=== PATIENT | female | born 2000 | race African-American/Black ===

== ENCOUNTER 2020-08-28 15:58 | Emergency (ER) | payer MEDICAID, SELFPAY ==
[2020-08-28 16:10] VITALS: BP 116/70; PULSE 78; RESP 18; TEMP 36.8; O2SAT 98; BMI 43.0
[2020-08-28] MEDS: Magnesium Hydrox/Alum Hydrox 30 ML ORAL.SUSP PO (17:35)
[2020-08-28] MEDS: Lidocaine HCl Viscous 2 % 15 ML SOLUTION 10 ML MUCOUS MEM (17:35)
[2020-08-28] MEDS: Dicyclomine HCl 10 MG CAPSULE 20 MG PO (17:35)
[2020-08-28 17:42] LABS: Basophils Percent Auto 0.3 % (0-2); Eosinophils Absolute Auto 0.1 X10*3/uL (0.0-0.4); Eosinophils Percent Auto 0.7 % (0-4); Hematocrit 42.4 % (37-47); Hemoglobin 14.1 g/dl (12.0-16.0); Imm Gran Abs Auto 0.04 X10*3/uL (0.00-0.03); Imm Gran Pct Auto 0.3 % (0.0-0.4); Lymphocytes Absolute Auto 5.1 X10*3/uL (1.2-4.9); Lymphocytes Percent Auto 33.5 % (20-40); MANUAL DIFF FLAG SCAN; Mean Corpuscular HGB Conc 33.3 g/dl (31.0-35.0); Mean Corpuscular Hemoglobin 30.4 pg (27.0-33.0); Mean Corpuscular Volume 91.4 fL (80-98); Mean Platelet Volume 10.9 fL (9.4-12.3); Monocytes Absolute Auto 0.8 X10*3/uL (0.1-1.2); Monocytes Percent Auto 5.1 % (2-11); Neutrophils Absolute Auto 9.2 X10*3/uL (2.0-8.3); Neutrophils Percent Auto 60.1 % (45-73); Platelet Count 334 X10*3/uL (160-400); Red Blood Count 4.64 X10*6/uL (4.20-5.50); Red Cell Distribution Width 12.1 % (11.0-16.0); SCAN SMEAR FLAG 1; White Blood Count 15.2 X10*3/uL (4.8-10.8)
[2020-08-28 17:51] LABS: Glucose Urine UA NEG (NEG); Leukocyte Esterase Urine NEG (NEG); Nitrite Urine NEG (NEG); Specific Gravity - Urine 1.015 (1.005-1.025); Urine Blood NEG (NEG); Urine Ketones NEG (NEG); Urine Protein NEG (NEG-TRACE)
[2020-08-28 17:55] LABS: Appearance Urine CLEAR; Color Urine YELLOW; UPreg QC Valid YES; Urine Pregnancy NEGATIVE (NEGATIVE)
[2020-08-28 18:05] LABS: SLIDE REVIEW VERIFIED
[2020-08-28 18:06] LABS: Alanine Aminotransferase 23 U/L (0-31); Alkaline Phosphatase 98 U/L (39-117); Anion Gap 10 (12-20); Aspartate Amino Transferase 18 U/L (5-31); Bilirubin Total 0.3 mg/dL (0.0-1.0); Blood Urea Nitrogen 6 mg/dL (9-16); Calcium 8.9 mg/dL (8.4-10.2); Carbon Dioxide 27 mmol/L (22-29); Chloride 105 mmol/L (96-108); Creatinine Clr Calc Pharmacy 162.1; Estimated Glomerular Filt Rate > 60; Glucose Random 79 mg/dL (60-115); Potassium 4.1 mmol/L (3.3-5.1); Sodium 138 mmol/L (135-145); Total Protein 7.6 g/dL (6.5-8.0)
[2020-08-28 18:22] LABS: Bacteria Urine TRACE /LPF; RBC Urine 0 /HPF (0); Squamous Epithelial Cell Urine 1+ /LPF; WBC Urine 0 /HPF (0-4)
[2020-08-28 19:40] VITALS: BP 105/66; PULSE 64; RESP 18; TEMP 36.7; O2SAT 98
--- NOTE | 2020-08-28 20:12 | ED.ABDPAIN ---
HPI - Abdominal Pain General Chief Complaint: Abdominal Pain Stated Complaint: flank pain Time Seen by Provider: 08/28/20 17:16 Source: patient Mode of arrival: ambulatory Limitations: no limitations History of Present Illness HPI narrative: 20-year-old female who denies significant past medical history who presents ambulatory via triage with complaint of states over the past couple months she has had on and off epigastric pain that is described as burning like and intermittent. In addition to this she also reports she has days where she is having some constipation and days where she has soft stools/diarrhea with some mild cramping. She otherwise denies any fever, chills, nausea or vomiting. No recent travel or sick contacts. Related Data Previous Rx's Medication Instructions Recorded dicyclomine 20 mg PO BID #20 tab 08/28/20 omeprazole magnesium [Prilosec OTC] 20 mg PO DAILY #14 tab 08/28/20 Allergies Allergy/AdvReac Type Severity Reaction Status Date / Time No Known Allergies Allergy Verified 08/28/20 17:16 Review of Systems Review of Systems Constitutional: No Weight loss, No Fever, No Chills, No Night Sweats, No Fatigue, No Malaise ENT/Mouth: No Hearing loss, No Ear Pain, No Nasal Congestion, No Sinus Pain, No Hoarseness, No sore throat, No Rhinorrhea, No Swallowing Difficulty Eyes: No Eye Pain, No Swelling, No Redness, No Foreign Body, No Discharge, No Vision Changes Cardiovascular: No Chest Pain, No SOB, No Dyspnea on Exertion, No Orthopnea, No Edema, No Palpitations Respiratory: No Cough, No Sputum, No Wheezing, No Smoke Exposure, No Dyspnea Gastrointestinal: No Nausea, No Vomiting, No Diarrhea, No Constipation, + abdominal Pain, No Hematochezia, No Melena Genitourinary: no irregular bleeding, No Dysuria, No Urinary Frequency, No Hematuria, No Urinary Incontinence, No Urgency, No Flank Pain, No Urinary Flow Changes, No Hesitancy Musculoskeletal: No joint pain, No Myalgias, No Joint Swelling Skin: No Skin Lesions, No rash Neuro: No Weakness, No Numbness, No Paresthesias, No Loss of Consciousness, No Dizziness, No Headache Psych: No Social Issues Heme/Lymph: No Bruising, No Bleeding,No Lymphadenopathy Endocrine: No Polyuria, No Polydipsia, No Temperature Intolerance Yes all other systems are reviewed and are negative Physical Exam Vital Signs: Vital Signs: Last Vital Signs Temp 98.1 F 08/28/20 19:40 Pulse 64 08/28/20 19:40 Resp 18 08/28/20 19:40 BP 105/66 08/28/20 19:40 Pulse Ox 98 08/28/20 19:40 Body Mass Index 43.0 Reviewed Const: General: cooperative and healthy appearing; No acute distress or intoxicated appearing Nutritional Appearance: average body habitus Orientation/consciousness: patient oriented x3 HENMT: Head: Yes normal to inspection Ears: hearing grossly normal bilaterally Eyes: General: appearance normal, both eyes and all related structures Visual Almanza: normal visual almanza by confrontation Neck: Neck: Yes normal visual inspection, No positive Brudzinski's sign, No positive Kernig's sign and No tender Thyroid: Thyroid normal Chest: Chest palpation & inspection: normal inspection of the chest Resp: Effort & Inspection: normal respiratory effort Auscultation: clear to auscultation bilaterally Cardio: Jugular venous distension: no JVD Rhythm: regular rhythm Heart sounds: S1 normal heart sound present and S2 normal heart sound present GI: Inspection: Yes normal to inspection Palpation (GI): Soft to palpation, nontender, no guarding and not rigid Percussion: Yes normal to percussion Auscultation: normal bowel sounds : General: Yes no CVA tenderness Back/Spine/Pelvis: Back: no CVA tenderness Skin: General skin exam: no rashes or lesions noted Neuro: General: patient oriented x3 Extrem: General: Yes normal to inspection Course Course Course Narrative: Labs with leukocytosis of 15 no previous to compare to question reactive, otherwise abdominal exam reassuring feels much better after GI cocktail her discomfort has resolved. She is overweight with BMI of 43. I suspect component of gastroesophageal reflux disease/IBS. Given the abdominal exam is reassuring and she overall looks well I do not feel that she needs any advanced imaging at this time. This was reviewed with the patient she is agreeable and comfortable. Hemodynamically stable. Will discharge home with GI as well as GP follow-up. Clear return precautions follow-up provided. MDM - Abdominal Pain Lab Data Result diagrams: 08/28/20 17:28 08/28/20 17:28 Labs: Lab Results 04/01/21 04/01/21 04/01/21 Range/Units 17:28 17:28 17:28 WBC 15.2 H (4.8-10.8) X10*3/uL RBC 4.64 (4.20-5.50) X10*6/uL Hgb 14.1 (12.0-16.0) g/dl Hct 42.4 (37-47) % MCV 91.4 (80-98) fL MCH 30.4 (27.0-33.0) pg MCHC 33.3 (31.0-35.0) g/dl RDW 12.1 (11.0-16.0) % Plt Count 334 (160-400) X10*3/uL MPV 10.9 (9.4-12.3) fL Immature Gran % (Auto) 0.3 (0.0-0.4) % Neut % (Auto) 60.1 (45-73) % Lymph % (Auto) 33.5 (20-40) % Mellette % (Auto) 5.1 (2-11) % Eos % (Auto) 0.7 (0-4) % Baso % (Auto) 0.3 (0-2) % Lymph # (Auto) 5.1 H (1.2-4.9) X10*3/uL Mellette # (Auto) 0.8 (0.1-1.2) X10*3/uL Eos # (Auto) 0.1 (0.0-0.4) X10*3/uL Baso # (Auto) 0.0 (0.0-0.2) X10*3/uL Abs Immat Gran (auto) 0.04 H (0.00-0.03) X10*3/uL Absolute Neuts (auto) 9.2 H (2.0-8.3) X10*3/uL Absolute Nucleated RBC 0.000 (0.0-0.012) X10*3/uL Nucleated RBC % (auto) 0.0 (0.0-0.2) /100WBC Smear Tech's Comments VERIFIED Sodium 138 (135-145) mmol/L Potassium 4.1 (3.3-5.1) mmol/L Chloride 105 (96-108) mmol/L Carbon Dioxide 27 (22-29) mmol/L Anion Gap 10 L (12-20) BUN 6 L (9-16) mg/dL Creatinine 0.66 (0.5-1.4) mg/dL Estim Creat Clear Calc 162.1 Estimated GFR > 60 Random Glucose 79 (60-115) mg/dL Calcium 8.9 (8.4-10.2) mg/dL Total Bilirubin 0.3 (0.0-1.0) mg/dL AST 18 (5-31) U/L ALT 23 (0-31) U/L Alkaline Phosphatase 98 (39-117) U/L Total Protein 7.6 (6.5-8.0) g/dL Albumin 4.0 (3.5-5.0) g/dL Urine Color YELLOW Urine Appearance CLEAR Urine pH 6.0 (5.0-8.0) Ur Specific Downs 1.015 (1.005-1.025) Urine Protein NEG (NEG-TRACE) MG/DL Urine Glucose (UA) NEG (NEG) MG/DL Urine Ketones NEG (NEG) MG/DL Urine Blood NEG (NEG) Urine Nitrite NEG (NEG) Ur Leukocyte Esterase NEG (NEG) Urine RBC 0 (0) /HPF Urine WBC 0 (0-4) /HPF Ur Squamous Epith Cells 1+ /LPF Urine Bacteria TRACE /LPF Urine Test (NEGATIVE) 08/28/20 Range/Units 17:28 WBC (4.8-10.8) X10*3/uL RBC (4.20-5.50) X10*6/uL Hgb (12.0-16.0) g/dl Hct (37-47) % MCV (80-98) fL MCH (27.0-33.0) pg MCHC (31.0-35.0) g/dl RDW (11.0-16.0) % Plt Count (160-400) X10*3/uL MPV (9.4-12.3) fL Immature Gran % (Auto) (0.0-0.4) % Neut % (Auto) (45-73) % Lymph % (Auto) (20-40) % Mellette % (Auto) (2-11) % Eos % (Auto) (0-4) % Baso % (Auto) (0-2) % Lymph # (Auto) (1.2-4.9) X10*3/uL Mellette # (Auto) (0.1-1.2) X10*3/uL Eos # (Auto) (0.0-0.4) X10*3/uL Baso # (Auto) (0.0-0.2) X10*3/uL Abs Immat Gran (auto) (0.00-0.03) X10*3/uL Absolute Neuts (auto) (2.0-8.3) X10*3/uL Absolute Nucleated RBC (0.0-0.012) X10*3/uL Nucleated RBC % (auto) (0.0-0.2) /100WBC Smear Tech's Comments Sodium (135-145) mmol/L Potassium (3.3-5.1) mmol/L Chloride (96-108) mmol/L Carbon Dioxide (22-29) mmol/L Anion Gap (12-20) BUN (9-16) mg/dL Creatinine (0.5-1.4) mg/dL Estim Creat Clear Calc Estimated GFR Random Glucose (60-115) mg/dL Calcium (8.4-10.2) mg/dL Total Bilirubin (0.0-1.0) mg/dL AST (5-31) U/L ALT (0-31) U/L Alkaline Phosphatase (39-117) U/L Total Protein (6.5-8.0) g/dL Albumin (3.5-5.0) g/dL Urine Color Urine Appearance Urine pH (5.0-8.0) Ur Specific Downs (1.005-1.025) Urine Protein (NEG-TRACE) MG/DL Urine Glucose (UA) (NEG) MG/DL Urine Ketones (NEG) MG/DL Urine Blood (NEG) Urine Nitrite (NEG) Ur Leukocyte Esterase (NEG) Urine RBC (0) /HPF Urine WBC (0-4) /HPF Ur Squamous Epith Cells /LPF Urine Bacteria /LPF Urine Test NEGATIVE (NEGATIVE) Discharge Plan Discharge Clinical Impression: Abdominal pain Patient Disposition: Home, Self-Care Instructions: Irritable Bowel Syndrome (ED), Diet for Stomach Ulcers and Gastritis (ED), Gastroesophageal Reflux Disease (ED) Additional Instructions: Eat a balanced diet Avoid carbonated drinks Avoid caffeine Avoid fast foods Avoid any greasy foods Eat small and frequent meals and diet this mostly consistent with Mediterranean diet Follow-up with the GI doctor as discussed Follow-up with primary care doctor Return if any concerns or worsening symptoms including abdominal pain, nausea, vomiting, diarrhea, pain, fever Thank you Prescriptions: New omeprazole magnesium [Prilosec OTC] 20 mg tablet,delayed release (DR/EC) 20 mg PO DAILY Qty: 14 RF: 0 dicyclomine 20 mg tablet 20 mg PO BID Qty: 20 RF: 0 Referrals: Adina Greenberg MD [Physician] - 2 weeks Chasity Spaulding MD [Physician] - 2 weeks [facility] Past Medical History Medical History Anxiety Depression Sinusitis Social History Social History Advance Directives: No Advance Directives Information Provided: No
== END 2020-08-28 20:43 | disposition home or self-care (01) ==
PROVIDERS: Nurse Practitioner Primary Care; Emergency Provider Emergency Medicine
DX: R10.9 Unspecified abdominal pain (principal)
CPT/HCPCS: 36415; 80053; 81001; 81025; 85025; 99283; 99284

== ENCOUNTER 2021-02-04 19:40 | Emergency (ER) | payer MEDICAID, SELFPAY ==
--- NOTE | ~2021-02-04 | US_ITS ---
EXAMINATION: US PELVIS CLINICAL INFORMATION: Abnormal bleeding. Pain. COMPARISON: None TECHNIQUE: Ultrasound of the pelvis is performed using both transabdominal and transvaginal transducers along with Doppler. Transvaginal imaging is performed due to inadequate visualization transabdominally. FINDINGS: Uterus: The uterus is anteverted and measures 7.0 x 2.7 x 3.2 cm. The double wall endometrial thickness is 6 mm. The uterus is smooth in contour and has normal myometrial echogenicity. No visible fibroid. Adnexa: Both ovaries are visualized. There is normal color flow to the adnexa. There is no ovarian torsion. There is no pelvic ascites or fluid collection. Right ovarian dominant follicle measuring 1.0 cm. Right ovary measures 3.1 x 1.8 x 1.1 cm. Volume of 3 mL. Left ovary measures 1.8 x 1.5 x 1.4 cm. Volume of 2 mL. US/US pelvic and transvaginal IMPRESSION: Unremarkable examination.
[2021-02-04 21:03] VITALS: BP 103/69; PULSE 87; RESP 18; TEMP 37.4; O2SAT 98; BMI 43.4
--- NOTE | 2021-02-04 22:11 | ED_ITS ---
HPI - Abdominal Pain General Chief Complaint: Abdominal Pain Stated Complaint: Abdominal pain/vomiting Source: patient Mode of arrival: ambulatory Limitations: no limitations History of Present Illness HPI narrative: 20-year-old female presents with severe abdominal pain and cramping. She states that she normally has significant pain, cramping, and abnormal bleeding with all her periods, but today she cannot control the nausea and vomiting. Patient is not sexually active with men, does have significant family history of uterine and cervical cancer. MD elicited complaint: abdominal pain Onset (ago): day(s) Pain Consistency: constant Location: suprapubic Severity: severe Pain scale (0-10): 10 Quality: cramping Radiation: suprapubic Migration to: no migration Exacerbating factors: vomiting and movement Relieving factors: nothing Associated symptoms: nausea and vomiting Treatments prior to arrival: NSAIDs Related Data Date of Last Menstrual Period: 02/04/21 Patient : No Previous Rx's Medication Instructions Recorded dicyclomine 20 mg tablet 20 mg PO BID #20 tab 08/28/20 omeprazole magnesium 20 mg 20 mg PO DAILY #14 tab 08/28/20 tablet,delayed release (Prilosec OTC) ibuprofen 600 mg tablet 600 mg PO Q6H PRN #90 tab 02/05/21 metoclopramide HCl 10 mg tablet 10 mg PO Q8H PRN #14 tab 02/05/21 (Reglan) Allergies Allergy/AdvReac Type Severity Reaction Status Date / Time No Known Allergies Allergy Verified 02/04/21 21:03 Review of Systems Review of Systems Constitutional: No Fever, No Chills ENT/Mouth: No sore throat, No Rhinorrhea Eyes: No Eye Pain, No Redness Cardiovascular: No Chest Pain, No SOB Respiratory: No Cough, No Sputum, No Wheezing Gastrointestinal: positive Nausea, positive Vomiting, No Diarrhea, positive abdominal pain Genitourinary: positive irregular bleeding, No Dysuria, No Urinary Frequency, positive pelvic pain Musculoskeletal: No Myalgias Skin: No rash Neuro: No Weakness, No Headache Psych: No Anxiety/Panic, No Depression Heme/Lymph: No bruising, No Lymphadenopathy Endocrine: No Polyuria, No Polydipsia Yes all other systems are reviewed and are negative Physical Exam Vital Signs: Vital Signs: Last Vital Signs Temp 99.4 F 02/04/21 21:03 Pulse 54 09/09/21 00:26 Resp 16 02/05/21 00:26 BP 120/81 02/05/21 00:26 Pulse Ox 98 02/04/21 21:03 Body Mass Index 43.4 Appearance: Alert. Oriented X3. Moderate distress. Eyes: Pupils equal, round and reactive to light. ENT: Pharynx normal. Moist mucous membranes. Neck: Normal inspection. Neck supple. CVS: Normal heart rate and rhythm. Pulses normal. Respiratory: No respiratory distress. Breath sounds normal. Abdomen: Soft and suprapubic tenderness. Skin: Skin warm and dry. Normal skin color. Normal skin turgor. Extremities: No lower extremity edema. Neuro: No motor deficit. No sensory deficit. Cranial nerves 2-12 intact. Course Course Course Narrative: 20-year-old female presents with abdominal cramping associated with menstruation, nausea, vomiting, and abnormal vaginal bleeding. She is concerned because she does have significant family history of uterine and cervical cancer and has not had recent gynecological exam. Will order labs, fluid resuscitation, antiemetics, and pelvic ultrasound. Labs, ultrasound are negative for acute findings requiring emergent intervention. With patient's significant family history, it is advised that she follow-up with Dr. Hernandez. Will prescribe Reglan, Benadryl, and ibuprofen. Patient verbalized understanding of and agrees plan of care discharge home. MDM - Abdominal Pain Differential Diagnosis Differential diagnosis: Likely ovarian cyst Differential diagnosis narrative:: Uterine fibroid Medical Records Attestation: I reviewed the patient's medical records. Lab Data Attestation: I reviewed the patient's lab results. Result diagrams: 02/04/21 22:10 02/04/21 22:09 Labs: Lab Results 02/04/21 02/04/21 02/04/21 Range/Units 22:09 22:10 22:25 WBC 17.4 H (4.8-10.8) X10*3/uL RBC 4.82 (4.20-5.50) X10*6/uL Hgb 14.6 (12.0-16.0) g/dl Hct 42.4 (37-47) % MCV 88.0 (80-98) fL MCH 30.3 (27.0-33.0) pg MCHC 34.4 (31.0-35.0) g/dl RDW 12.2 (11.0-16.0) % Plt Count 395 (160-400) X10*3/uL MPV 11.2 (9.4-12.3) fL Immature Gran % (Auto) 0.4 (0.0-0.4) % Neut % (Auto) 85.7 H (45-73) % Lymph % (Auto) 11.1 L (20-40) % Marshall % (Auto) 2.6 (2-11) % Eos % (Auto) 0.0 (0-4) % Baso % (Auto) 0.2 (0-2) % Lymph # (Auto) 1.9 (1.2-4.9) X10*3/uL Marshall # (Auto) 0.5 (0.1-1.2) X10*3/uL Eos # (Auto) 0.0 (0.0-0.4) X10*3/uL Baso # (Auto) 0.0 (0.0-0.2) X10*3/uL Abs Immat Gran (auto) 0.07 H (0.00-0.03) X10*3/uL Absolute Neuts (auto) 14.9 H (2.0-8.3) X10*3/uL Absolute Nucleated RBC 0.000 (0.0-0.012) X10*3/uL Nucleated RBC % (auto) 0.0 (0.0-0.2) /100WBC Sodium 138 (135-145) mmol/L Potassium 3.9 (3.3-5.1) mmol/L Chloride 106 (96-108) mmol/L Carbon Dioxide 21 L (22-29) mmol/L Anion Gap 15 (12-20) BUN 6 L (9-16) mg/dL Creatinine 0.74 (0.5-1.4) mg/dL Estim Creat Clear Calc 145.3 Estimated GFR > 60 Random Glucose 140 H D (60-115) mg/dL Calcium 10.1 D (8.4-10.2) mg/dL Total Bilirubin 0.6 (0.0-1.0) mg/dL AST 16 (5-31) U/L ALT 17 (0-31) U/L Alkaline Phosphatase 94 (39-117) U/L Total Protein 8.2 H (6.5-8.0) g/dL Albumin 4.4 (3.5-5.0) g/dL COVID-19 ([facility]) Negative (Negative) COVID-19 Clin Com See Note Imaging Data Pelvic ultrasound: Attestation: I personally reviewed and interpreted this imaging study as follows: Radiologist's impression: EXAMINATION:? US PELVIS CLINICAL INFORMATION:? Abnormal bleeding. Pain. COMPARISON: None TECHNIQUE: Ultrasound of the pelvis is performed using both transabdominal and transvaginal transducers along with Doppler. Transvaginal imaging is performed due to inadequate visualization transabdominally. FINDINGS: Uterus: The uterus is anteverted and measures 7.0 x 2.7 x 3.2 cm. The double wall endometrial thickness is 6 mm.? The uterus is smooth in contour and has normal myometrial echogenicity. No visible fibroid. Adnexa: Both ovaries are visualized. There is normal color flow to the adnexa. There is no ovarian torsion. There is no pelvic ascites or fluid collection. Right ovarian dominant follicle measuring 1.0 cm. Right ovary measures 3.1 x 1.8 x 1.1 cm. Volume of 3 mL. Left ovary measures 1.8 x 1.5 x 1.4 cm. Volume of 2 mL. US/US pelvic and transvaginal IMPRESSION: Unremarkable examination. Discharge Plan Discharge Clinical Impression: Dysfunctional uterine bleeding Patient Disposition: Home, Self-Care Instructions: Dysfunctional Uterine Bleeding (ED) Additional Instructions: You were evaluated for dysfunctional uterine bleeding. Your lab values are within normal limits. Your pelvic ultrasound is normal. However, with your family history you must follow-up with gynecology. I have referred you to Dr. Hernandez. Please use Reglan and Benadryl as needed for nausea and vomiting. Use ibuprofen as directed for menstrual cramps. Thank you for choosing this emergency department for evaluation. Please follow-up with primary care physician as needed. Return to the emergency department for any new, concerning, or worsening symptoms. Prescriptions: New ibuprofen 600 mg tablet 600 mg PO Q6H PRN (Reason: pain) Qty: 90 RF: 0 metoclopramide HCl [Reglan] 10 mg tablet 10 mg PO Q8H PRN (Reason: nausea and vomiting) Qty: 14 RF: 0 No Action omeprazole magnesium [Prilosec OTC] 20 mg tablet,delayed release (DR/EC) 20 mg PO DAILY Qty: 14 RF: 0 dicyclomine 20 mg tablet 20 mg PO BID Qty: 20 RF: 0 Referrals: Karri Hernandez MD [Physician] - 2 days (Dysfunctional uterine bleeding) [facility] Past Medical History Attestation statement: The following information was validated with the patient. Source: old records reviewed Medical History Anxiety Depression Sinusitis Date of Last Menstrual Period: 02/04/21 Social History Social History Advance Directives: No Advance Directives Information Provided: Yes Patient : No
[2021-02-04] MEDS: 0.9 % Sodium Chloride 1,000 ML 999 ML IV (22:17)
[2021-02-04 22:21] LABS: Basophils Percent Auto 0.2 % (0-2); Hematocrit 42.4 % (37-47); Hemoglobin 14.6 g/dl (12.0-16.0); Imm Gran Abs Auto 0.07 X10*3/uL (0.00-0.03); Imm Gran Pct Auto 0.4 % (0.0-0.4); Lymphocytes Absolute Auto 1.9 X10*3/uL (1.2-4.9); Lymphocytes Percent Auto 11.1 % (20-40); MANUAL DIFF FLAG NO; Mean Corpuscular HGB Conc 34.4 g/dl (31.0-35.0); Mean Corpuscular Hemoglobin 30.3 pg (27.0-33.0); Mean Platelet Volume 11.2 fL (9.4-12.3); Monocytes Absolute Auto 0.5 X10*3/uL (0.1-1.2); Monocytes Percent Auto 2.6 % (2-11); Neutrophils Absolute Auto 14.9 X10*3/uL (2.0-8.3); Neutrophils Percent Auto 85.7 % (45-73); Platelet Count 395 X10*3/uL (160-400); Red Blood Count 4.82 X10*6/uL (4.20-5.50); Red Cell Distribution Width 12.2 % (11.0-16.0); White Blood Count 17.4 X10*3/uL (4.8-10.8)
[2021-02-04] MEDS: ondansetron HCL 4 MG/2 ML VIAL IVPUSH (22:22)
--- NOTE | 2021-02-04 22:28 | PC.NURSE ---
pt taken to ultra sound
[2021-02-04 22:37] LABS: Alanine Aminotransferase 17 U/L (0-31); Albumin Level 4.4 g/dL (3.5-5.0); Alkaline Phosphatase 94 U/L (39-117); Anion Gap 15 (12-20); Aspartate Amino Transferase 16 U/L (5-31); Bilirubin Total 0.6 mg/dL (0.0-1.0); Blood Urea Nitrogen 6 mg/dL (9-16); Calcium 10.1 mg/dL (8.4-10.2); Carbon Dioxide 21 mmol/L (22-29); Chloride 106 mmol/L (96-108); Creatinine Clr Calc Pharmacy 145.3; Estimated Glomerular Filt Rate > 60; Glucose Random 140 mg/dL (60-115); Potassium 3.9 mmol/L (3.3-5.1); Sodium 138 mmol/L (135-145); Total Protein 8.2 g/dL (6.5-8.0)
[2021-02-04 22:44] LABS: COVID-19 Test Negative (Negative)
[2021-02-04] MEDS: Ketorolac Tromethamine 15 MG/ML VIAL 30 MG IVPUSH (23:06)
--- NOTE | 2021-02-04 23:08 | PC.NURSE ---
pt returned from ultra sound. medicated to abd pain.
[2021-02-05 00:26] VITALS: BP 120/81; PULSE 54; RESP 16
[2021-02-05] MEDS: diphenhydrAMINE HCL 50 MG/ML VIAL 25 MG IVPUSH (00:26)
[2021-02-05] MEDS: Metoclopramide HCl 10 MG/2 ML VIAL IVPUSH (00:26)
[2021-02-05 01:04] VITALS: PULSE 55; RESP 16; O2SAT 99
== END 2021-02-05 01:22 | disposition home or self-care (01) ==
PROVIDERS: Nurse Practitioner Family; Emergency Provider Internal Medicine
DX: N93.8 Other specified abnormal uterine and vaginal bleeding (principal); R10.9 Unspecified abdominal pain; R11.2 Nausea with vomiting, unspecified; Z20.822 Contact with and (suspected) exposure to COVID-19; Z79.899 Other long term (current) drug therapy
CPT/HCPCS: 36415; 76830; 76856; 80053; 85025; 87635; 96361; 96374; 96375; 99284; J1200; J1885; J2405; J2765

== ENCOUNTER 2021-02-06 09:24 | Observation (INO) | payer MEDICAID, SELFPAY ==
[2021-02-06] VITALS (8 sets, daily range): BP systolic 107–133; BP diastolic 47–89; PULSE 57–77; RESP 12–18; TEMP 36.5–37.2; O2SAT 97–100; BMI 43.4
--- NOTE | ~2021-02-06 | US_ITS ---
EXAMINATION: US ABDOMEN LIMITED CLINICAL INFORMATION: Epigastric/right upper quadrant pain. COMPARISON: None TECHNIQUE: Real-time imaging of the right upper quadrant abdominal viscera. Exam is limited due to body habitus. FINDINGS: PANCREAS: The head and body the pancreas are normal. The tail is not well visualized. LIVER: The liver is a suboptimally visualized. Liver echotexture is increased probably representing fatty infiltration. No focal liver lesion or biliary duct dilatation. GALLBLADDER: Normal. The gallbladder is physiologically distended without evidence of stones, sludge, polyps, wall thickening or pericholecystic fluid. COMMON BILE DUCT: Normal in caliber measuring 0.3 cm in diameter. RIGHT KIDNEY: Normal. No hydronephrosis. No renal calculi or focal parenchymal lesions. The kidney measures 10.3 cm in maximum dimension. FREE FLUID: None. US/US abdomen limited IMPRESSION: Limited exam. Normal-appearing gallbladder. No gallstones. Echogenic liver probably representing fatty infiltration.
--- NOTE | 2021-02-06 10:33 | ED.NAVMDI ---
HPI - Nausea/Vomiting/Diarrhea General Chief complaint: Nausea/Vomiting/Diarrhea Stated complaint: VOMITNG ABD PAIN Time Seen by Provider: 02/06/21 10:28 Source: patient and old records reviewed Mode of arrival: ambulatory Limitations: no limitations History of Present Illness MD elicited complaint: nausea, vomiting and abdominal pain Pertinent past history: other (occurs around menses does smoke THC) Onset (ago): day(s) (2) Description of vomiting: food contents Associated nausea: Yes Associated abdominal pain: Yes Location of pain: epigastric Radiation: diffuse Pain consistency: constant Severity: severe Quality: stabbing Exacerbating factors: eating Relieving factors: none Context: marijuana use Associated symptoms: loss of appetite, malaise and nausea/vomiting Treatment prior to arrival: other Related Data Previous Rx's Medication Instructions Recorded dicyclomine 20 mg tablet 20 mg PO BID #20 tab 08/28/20 omeprazole magnesium 20 mg 20 mg PO DAILY #14 tab 08/28/20 tablet,delayed release (Prilosec OTC) ibuprofen 600 mg tablet 600 mg PO Q6H PRN #90 tab 02/05/21 metoclopramide HCl 10 mg tablet 10 mg PO Q8H PRN #14 tab 02/05/21 (Reglan) Allergies Allergy/AdvReac Type Severity Reaction Status Date / Time No Known Allergies Allergy Verified 02/06/21 10:27 Review of Systems Review of Systems: Constitutional : No Weight loss, No Fever, No Chills ENT/Mouth : No sore throat, No Rhinorrhea Eyes: No Swelling, No Redness Cardiovascular : No Chest Pain, No SOB, NoEdema Respiratory : No Cough, No Sputum, No Wheezing Gastrointestinal : Positive Nausea, Positive Vomiting, no Diarrhea, positive abdominal Pain, No Hematochezia, No Melena Genitourinary : No Dysuria, No Urinary Frequency, No Hematuria, No Urgency Musculoskeletal : No joint pain, No Myalgias, No Joint Swelling Skin : No Skin Lesions, No rash Neuro : No Weakness, No Numbness, No Dizziness, No Headache Psych : No Anxiety/Panic, No Depression Heme/Lymph: No Bruising, No Lymphadenopathy Endocrine : No Polyuria, No Polydipsia All other systems reviewed and are negative. Gastrointestinal: Gastrointestinal: Reports nausea PMFSH Past Medical History Attestation statement: The following information was validated with the patient. Medical History Anxiety Depression Sinusitis Social History Social History (Updated 02/06/21 @ 10:44 by Dorcas Lucas DO) Alcohol intake: never Patient Tobacco Use Status: Never used Tobacco Use of substances other than those prescribed or required for medical reasons: No Substance Use Type: Marijuana Advance Directives: Yes Advance Directives Information Provided: Yes Advance Directives on File: No Patient : No Physical Exam Vital Signs: Vital Signs: Last Vital Signs Temp 98.5 F 02/06/21 16:16 Pulse 72 02/06/21 16:16 Resp 13 02/06/21 16:16 BP 115/47 L 02/06/21 16:16 Pulse Ox 99 02/06/21 16:16 Body Mass Index 43.4 Appearance: Alert. Oriented X3. active vomiting, anxious mild acute distress. Eyes: Pupils equal, round and reactive to light. ENT: Pharynx normal. Neck: Normal inspection. Neck supple. CVS: Normal heart rate and rhythm. Pulses normal. Respiratory: No respiratory distress. Breath sounds normal. Abdomen: Soft and moderate epigastric ttp no rebound mild vol guarding Skin: Skin warm and dry. Normal skin color. Normal skin turgor. Extremities: No lower extremity edema. No calf ttp Neuro: Oriented X 3. No motor deficit. No sensory deficit. 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 Lab Data Result diagrams: 02/06/21 11:39 02/06/21 11:39 Labs: Lab Results 02/06/21 02/06/21 02/06/21 Range/Units 11:39 11:39 11:39 WBC 13.6 H (4.8-10.8) X10*3/uL RBC 4.62 (4.20-5.50) X10*6/uL Hgb 14.0 (12.0-16.0) g/dl Hct 40.3 (37-47) % MCV 87.2 (80-98) fL MCH 30.3 (27.0-33.0) pg MCHC 34.7 (31.0-35.0) g/dl RDW 12.3 (11.0-16.0) % Plt Count 349 (160-400) X10*3/uL MPV 11.1 (9.4-12.3) fL Immature Gran % (Auto) 0.4 (0.0-0.4) % Neut % (Auto) 77.7 H (45-73) % Lymph % (Auto) 17.3 L (20-40) % [place] % (Auto) 4.1 (2-11) % Eos % (Auto) 0.1 (0-4) % Baso % (Auto) 0.4 (0-2) % Lymph # (Auto) 2.4 (1.2-4.9) X10*3/uL [place] # (Auto) 0.6 (0.1-1.2) X10*3/uL Eos # (Auto) 0.0 (0.0-0.4) X10*3/uL Baso # (Auto) 0.1 (0.0-0.2) X10*3/uL Abs Immat Gran (auto) 0.05 H (0.00-0.03) X10*3/uL Absolute Neuts (auto) 10.5 H (2.0-8.3) X10*3/uL Absolute Nucleated RBC 0.000 (0.0-0.012) X10*3/uL Nucleated RBC % (auto) 0.0 (0.0-0.2) /100WBC Sodium 139 (135-145) mmol/L Potassium 3.2 L (3.3-5.1) mmol/L Chloride 108 (96-108) mmol/L Carbon Dioxide 20 L (22-29) mmol/L Anion Gap 14 (12-20) BUN 6 L (9-16) mg/dL Creatinine 0.72 (0.5-1.4) mg/dL Estim Creat Clear Calc 149.3 Estimated GFR > 60 Random Glucose 113 (60-115) mg/dL Calcium 9.6 (8.4-10.2) mg/dL Magnesium 1.7 (1.6-2.6) mg/dL Total Bilirubin 0.5 (0.0-1.0) mg/dL Direct Bilirubin 0.2 (0.0-0.5) mg/dL AST 17 (5-31) U/L ALT 16 (0-31) U/L Alkaline Phosphatase 81 (39-117) U/L Total Protein 7.2 (6.5-8.0) g/dL Albumin 4.0 (3.5-5.0) g/dL Lipase 27 (8-78) U/L Urine Color Urine Appearance Urine pH (5.0-8.0) Ur Specific [place] (1.005-1.025) Urine Protein (NEG-TRACE) MG/DL Urine Glucose (UA) (NEG) MG/DL Urine Ketones (NEG) MG/DL Urine Blood (NEG) Urine Nitrite (NEG) Ur Leukocyte Esterase (NEG) Urine RBC (0) /HPF Urine WBC (0-4) /HPF Ur Squamous Epith Cells /LPF Amorphous Sediment /LPF Urine Bacteria /LPF Urine Mucus /LPF Urine Test (NEGATIVE) Urine Opiates Screen (Not Detect) Urine Fentanyl Screen (Not Detect) Ur Barbiturates Screen (Not Detect) Ur Phencyclidine Scrn (Not Detect) Ur Amphetamines Screen (Not Detect) U Benzodiazepines Scrn (Not Detect) Urine Cocaine Screen (Not Detect) U Marijuana (THC) Screen (Not Detect) Ethyl Alcohol mg/dL COVID-19 ([facility]) (Negative) COVID-19 Clin Com 02/06/21 02/06/21 02/06/21 Range/Units 13:42 13:42 13:42 WBC (4.8-10.8) X10*3/uL RBC (4.20-5.50) X10*6/uL Hgb (12.0-16.0) g/dl Hct (37-47) % MCV (80-98) fL MCH (27.0-33.0) pg MCHC (31.0-35.0) g/dl RDW (11.0-16.0) % Plt Count (160-400) X10*3/uL MPV (9.4-12.3) fL Immature Gran % (Auto) (0.0-0.4) % Neut % (Auto) (45-73) % Lymph % (Auto) (20-40) % [place] % (Auto) (2-11) % Eos % (Auto) (0-4) % Baso % (Auto) (0-2) % Lymph # (Auto) (1.2-4.9) X10*3/uL [place] # (Auto) (0.1-1.2) X10*3/uL Eos # (Auto) (0.0-0.4) X10*3/uL Baso # (Auto) (0.0-0.2) X10*3/uL Abs Immat Gran (auto) (0.00-0.03) X10*3/uL Absolute Neuts (auto) (2.0-8.3) X10*3/uL Absolute Nucleated RBC (0.0-0.012) X10*3/uL Nucleated RBC % (auto) (0.0-0.2) /100WBC Sodium (135-145) mmol/L Potassium (3.3-5.1) mmol/L Chloride (96-108) mmol/L Carbon Dioxide (22-29) mmol/L Anion Gap (12-20) BUN (9-16) mg/dL Creatinine (0.5-1.4) mg/dL Estim Creat Clear Calc Estimated GFR Random Glucose (60-115) mg/dL Calcium (8.4-10.2) mg/dL Magnesium (1.6-2.6) mg/dL Total Bilirubin (0.0-1.0) mg/dL Direct Bilirubin (0.0-0.5) mg/dL AST (5-31) U/L ALT (0-31) U/L Alkaline Phosphatase (39-117) U/L Total Protein (6.5-8.0) g/dL Albumin (3.5-5.0) g/dL Lipase (8-78) U/L Urine Color YELLOW Urine Appearance HAZY Urine pH 6.0 (5.0-8.0) Ur Specific [place] >= 1.030 H (1.005-1.025) Urine Protein 1+ H (NEG-TRACE) MG/DL Urine Glucose (UA) NEG (NEG) MG/DL Urine Ketones >=80 (NEG) MG/DL Urine Blood 3+ H (NEG) Urine Nitrite NEG (NEG) Ur Leukocyte Esterase TRACE H (NEG) Urine RBC 1-4 (0) /HPF Urine WBC 1-4 (0-4) /HPF Ur Squamous Epith Cells 4+ /LPF Amorphous Sediment 2+ /LPF Urine Bacteria 2+ /LPF Urine Mucus TRACE /LPF Urine Test NEGATIVE (NEGATIVE) Urine Opiates Screen Not Detected (Not Detect) Urine Fentanyl Screen Not Detected (Not Detect) Ur Barbiturates Screen Not Detected (Not Detect) Ur Phencyclidine Scrn Not Detected (Not Detect) Ur Amphetamines Screen Not Detected (Not Detect) U Benzodiazepines Scrn Not Detected (Not Detect) Urine Cocaine Screen Not Detected (Not Detect) U Marijuana (THC) Screen POSITIVE H (Not Detect) Ethyl Alcohol mg/dL COVID-19 ([facility]) (Negative) COVID-19 Clin Com 02/06/21 02/06/21 Range/Units 13:46 13:47 WBC (4.8-10.8) X10*3/uL RBC (4.20-5.50) X10*6/uL Hgb (12.0-16.0) g/dl Hct (37-47) % MCV (80-98) fL MCH (27.0-33.0) pg MCHC (31.0-35.0) g/dl RDW (11.0-16.0) % Plt Count (160-400) X10*3/uL MPV (9.4-12.3) fL Immature Gran % (Auto) (0.0-0.4) % Neut % (Auto) (45-73) % Lymph % (Auto) (20-40) % [place] % (Auto) (2-11) % Eos % (Auto) (0-4) % Baso % (Auto) (0-2) % Lymph # (Auto) (1.2-4.9) X10*3/uL [place] # (Auto) (0.1-1.2) X10*3/uL Eos # (Auto) (0.0-0.4) X10*3/uL Baso # (Auto) (0.0-0.2) X10*3/uL Abs Immat Gran (auto) (0.00-0.03) X10*3/uL Absolute Neuts (auto) (2.0-8.3) X10*3/uL Absolute Nucleated RBC (0.0-0.012) X10*3/uL Nucleated RBC % (auto) (0.0-0.2) /100WBC Sodium (135-145) mmol/L Potassium (3.3-5.1) mmol/L Chloride (96-108) mmol/L Carbon Dioxide (22-29) mmol/L Anion Gap (12-20) BUN (9-16) mg/dL Creatinine (0.5-1.4) mg/dL Estim Creat Clear Calc Estimated GFR Random Glucose (60-115) mg/dL Calcium (8.4-10.2) mg/dL Magnesium (1.6-2.6) mg/dL Total Bilirubin (0.0-1.0) mg/dL Direct Bilirubin (0.0-0.5) mg/dL AST (5-31) U/L ALT (0-31) U/L Alkaline Phosphatase (39-117) U/L Total Protein (6.5-8.0) g/dL Albumin (3.5-5.0) g/dL Lipase (8-78) U/L Urine Color Urine Appearance Urine pH (5.0-8.0) Ur Specific [place] (1.005-1.025) Urine Protein (NEG-TRACE) MG/DL Urine Glucose (UA) (NEG) MG/DL Urine Ketones (NEG) MG/DL Urine Blood (NEG) Urine Nitrite (NEG) Ur Leukocyte Esterase (NEG) Urine RBC (0) /HPF Urine WBC (0-4) /HPF Ur Squamous Epith Cells /LPF Amorphous Sediment /LPF Urine Bacteria /LPF Urine Mucus /LPF Urine Test (NEGATIVE) Urine Opiates Screen (Not Detect) Urine Fentanyl Screen (Not Detect) Ur Barbiturates Screen (Not Detect) Ur Phencyclidine Scrn (Not Detect) Ur Amphetamines Screen (Not Detect) U Benzodiazepines Scrn (Not Detect) Urine Cocaine Screen (Not Detect) U Marijuana (THC) Screen (Not Detect) Ethyl Alcohol < 10 mg/dL COVID-19 ([facility]) Negative (Negative) COVID-19 Clin Com See Note Critical Care Time Critical Care Time Critical Care Time: Yes Total Critical Care Time: 45 Attestation: review of records, 2L of IVF, multiple anti emetics I attest to this time spent taking care of the patient Discharge Plan Discharge Clinical Impression: Marijuana use, Acute hypokalemia Vomiting Qualifiers: Vomiting type: unspecified Vomiting Intractability: intractable Nausea presence: with nausea Qualified Code(s): R11.2 - Nausea with vomiting, unspecified Patient Disposition: Admitted As Inpatient
[2021-02-06] MEDS: 0.9 % Sodium Chloride 1,000 ML 999 ML IVCONT (11:34)
[2021-02-06] MEDS: Metoclopramide HCl 10 MG/2 ML VIAL IVPUSH (11:35)
[2021-02-06] MEDS: diphenhydrAMINE HCL 50 MG/ML VIAL 25 MG IVPUSH (11:35)
[2021-02-06 11:44] LABS: MANUAL DIFF FLAG NO
[2021-02-06 11:46] LABS: Basophils Absolute Auto 0.1 X10*3/uL (0.0-0.2); Basophils Percent Auto 0.4 % (0-2); Eosinophils Percent Auto 0.1 % (0-4); Hematocrit 40.3 % (37-47); Imm Gran Abs Auto 0.05 X10*3/uL (0.00-0.03); Imm Gran Pct Auto 0.4 % (0.0-0.4); Lymphocytes Absolute Auto 2.4 X10*3/uL (1.2-4.9); Lymphocytes Percent Auto 17.3 % (20-40); Mean Corpuscular HGB Conc 34.7 g/dl (31.0-35.0); Mean Corpuscular Hemoglobin 30.3 pg (27.0-33.0); Mean Corpuscular Volume 87.2 fL (80-98); Mean Platelet Volume 11.1 fL (9.4-12.3); Monocytes Absolute Auto 0.6 X10*3/uL (0.1-1.2); Monocytes Percent Auto 4.1 % (2-11); Neutrophils Absolute Auto 10.5 X10*3/uL (2.0-8.3); Neutrophils Percent Auto 77.7 % (45-73); Platelet Count 349 X10*3/uL (160-400); Red Blood Count 4.62 X10*6/uL (4.20-5.50); Red Cell Distribution Width 12.3 % (11.0-16.0); White Blood Count 13.6 X10*3/uL (4.8-10.8)
[2021-02-06 12:22] LABS: Alanine Aminotransferase 16 U/L (0-31); Alkaline Phosphatase 81 U/L (39-117); Aspartate Amino Transferase 17 U/L (5-31); Bilirubin Direct 0.2 mg/dL (0.0-0.5); Bilirubin Total 0.5 mg/dL (0.0-1.0); Lipase 27 U/L (8-78); Magnesium 1.7 mg/dL (1.6-2.6); Total Protein 7.2 g/dL (6.5-8.0)
[2021-02-06 12:23] LABS: Anion Gap 14 (12-20); Blood Urea Nitrogen 6 mg/dL (9-16); Calcium 9.6 mg/dL (8.4-10.2); Carbon Dioxide 20 mmol/L (22-29); Chloride 108 mmol/L (96-108); Creatinine Clr Calc Pharmacy 149.3; Estimated Glomerular Filt Rate > 60; Glucose Random 113 mg/dL (60-115); Potassium 3.2 mmol/L (3.3-5.1); Sodium 139 mmol/L (135-145)
[2021-02-06] MEDS: Potassium Chloride/H20 10 MEQ/100 ML PIGGYBACK 100 MEQ IV ×2 (13:39→15:26)
[2021-02-06 13:57] LABS: UPreg QC Valid YES; Urine Pregnancy NEGATIVE (NEGATIVE)
[2021-02-06] MEDS: Haloperidol Lactate 5 MG/ML VIAL IM (13:59)
[2021-02-06 14:00] LABS: Appearance Urine HAZY; Color Urine YELLOW; Glucose Urine UA NEG (NEG); Leukocyte Esterase Urine TRACE (NEG); Nitrite Urine NEG (NEG); Specific Gravity - Urine >= 1.030 (1.005-1.025); UACC Culture Trigger YES; Urine Blood 3+ (NEG); Urine Ketones >=80 MG/DL (NEG); Urine Protein 1+ MG/DL (NEG-TRACE)
[2021-02-06 14:05] LABS: Ethanol < 10 mg/dL
[2021-02-06 14:06] LABS: Amorphous Sediment Urine 2+ /LPF; Bacteria Urine 2+ /LPF; Mucus Urine TRACE /LPF; Squamous Epithelial Cell Urine 4+ /LPF
[2021-02-06 14:08] LABS: Amphetamine Screen Urine Not Detected (Not Detect); Barbiturates, Urine Not Detected (Not Detect); Benzodiazepines Screen Urine Not Detected (Not Detect); Cannabinoid Screen Urine POSITIVE (Not Detect); Cocaine Screen Urine Not Detected (Not Detect); Fentanyl, urine Not Detected (Not Detect); Opiate Screen Urine Not Detected (Not Detect); Phencyclidine Screen Urine Not Detected (Not Detect)
[2021-02-06 14:09] LABS: COVID-19 Test Negative (Negative)
--- NOTE | 2021-02-06 15:06 | PC.NURSE ---
unable to tolerate jello or ginerale
[2021-02-06] MEDS: 0.9 % Sodium Chloride 1,000 ML 999 ML IV (15:26)
[2021-02-06] MEDS: ondansetron HCL 4 MG/2 ML VIAL IVPUSH ×2 (15:29→23:18)
--- NOTE | 2021-02-06 16:19 | P.HPHOSP_ITS ---
History of Present Illness Date of Service: 02/06/21 Chief Complaint: nausea /vomting 20 Y/O female who has came to the hospital because of nausea vomiting .she says she has have these symptoms from 2-3 days and unable to take p.o.. In addition patient was using marijuana at home. She said 1 time she had these similar symptoms long time back that time also she was having her periods. She has mild epigastric pain Denies any new complaint of chest pain or shortness of breath or fever or chills or headache or blurry vision Denies any cough Denies any weakness or numbness. Past surgical history: None as per the patient. Social history: She lives with her fiance, totally independent. Works housekeeping Review of Systems Review of Systems: As above in HPI accept negative. Yes all other systems are reviewed and are negative [facility] Medical History Anxiety Depression Sinusitis Pertinent family history: Family history of mother side had lung cancer cervical cancer,brain cancer history Social History Alcohol intake: never Patient Tobacco Use Status: Never used Tobacco Use of substances other than those prescribed or required for medical reasons: No Substance Use Type: Marijuana Advance Directives: Yes Advance Directives Information Provided: Yes Advance Directives on File: No Advance Directives Date on File: 02/06/21 Patient : No Meds Allergies Allergy/AdvReac Type Severity Reaction Status Date / Time No Known Allergies Allergy Verified 02/06/21 10:27 Active Medications: Current Medications Generic Name Dose Route Start Last Admin Trade Name Omar PRN Reason Stop Dose Admin Lactated Ringer's 1,000 mls @ 80 mls/hr 02/06/21 16:15 Lr IVCONT .[id number] LAURA Lactated Ringer's 1,000 mls @ 80 mls/hr 02/06/21 16:30 Lr IVCONT .[id number] LAURA Ondansetron HCl 4 mg 02/06/21 16:30 Ondansetron Hcl 4 Mg/2 Ml Vial IVPUSH Q6H [facility] Pantoprazole Sodium 40 mg 02/06/21 16:30 Pantoprazole Sodium 40 Mg/10 Ml Vial IVPUSH DAILY [facility] Pharmacy Consult 1 each 02/06/21 15:06 Consult Rx Perform Med Rec MISCELLANE ONCE PRN Consult order Sodium Chloride 3 ml 02/07/21 00:00 0.9 % Sodium Chloride Flush 3 Ml Syringe [facility] Medications Medication Instructions Recorded Confirmed Last Taken Type diphenhydramine HCl 25 mg capsule 25 mg PO DAILY PRN 02/06/21 02/06/21 02/05/21 History (Benadryl) Physical Exam Vital Signs and Narrative: Vital Signs: Last Vital Signs Temp 98.5 F 02/06/21 16:16 Pulse 72 02/06/21 16:16 Resp 13 02/06/21 16:16 BP 115/47 L 02/06/21 16:16 Pulse Ox 99 02/06/21 16:16 Body Mass Index 43.4 Physical exam: Appearance: Alert.? Oriented X3.? not in distress.? Eyes: Pupils equal, round and reactive to light.? Sclera nonicteric.? ENT: Pharynx normal.? Moist mucous membranes. cvs: rrr, [id number] , no murmur res: clear to auscultation ,no rhonchii or wheezing abd: no rebound or guarding ,mild epigastric discomfort, bs present. ext pulses present , no cyanosis ,Gait well balanced well coordinated. neuro: axo3 , nonfocal. Results Labs CBC and Chem 7: 02/06/21 11:39 02/06/21 11:39 Labs: Laboratory Results - last 24 hr 02/06/21 02/06/21 02/06/21 11:39 11:39 11:39 MCV 87.2 MCH 30.3 MCHC 34.7 RDW 12.3 Plt Count 349 MPV 11.1 Immature Gran % (Auto) 0.4 Neut % (Auto) 77.7 H Lymph % (Auto) 17.3 L [place] % (Auto) 4.1 Eos % (Auto) 0.1 Baso % (Auto) 0.4 Lymph # (Auto) 2.4 [place] # (Auto) 0.6 Eos # (Auto) 0.0 Baso # (Auto) 0.1 Abs Immat Gran (auto) 0.05 H Absolute Neuts (auto) 10.5 H Absolute Nucleated RBC 0.000 Nucleated RBC % (auto) 0.0 Anion Gap 14 Estim Creat Clear Calc 149.3 Estimated GFR > 60 Random Glucose 113 Calcium 9.6 Magnesium 1.7 Total Bilirubin 0.5 Direct Bilirubin 0.2 AST 17 ALT 16 Alkaline Phosphatase 81 Total Protein 7.2 Albumin 4.0 Lipase 27 Urine Color Urine Appearance Urine pH Ur Specific [place] Urine Protein Urine Glucose (UA) Urine Ketones Urine Blood Urine Nitrite Ur Leukocyte Esterase Urine RBC Urine WBC Ur Squamous Epith Cells Amorphous Sediment Urine Bacteria Urine Mucus Urine Test Urine Opiates Screen Urine Fentanyl Screen Ur Barbiturates Screen Ur Phencyclidine Scrn Ur Amphetamines Screen U Benzodiazepines Scrn Urine Cocaine Screen U Marijuana (THC) Screen Ethyl Alcohol COVID-19 ([facility]) COVID-19 [employer] 02/06/21 02/06/21 02/06/21 13:42 13:42 13:42 MCV MCH MCHC RDW Plt Count MPV Immature Gran % (Auto) Neut % (Auto) Lymph % (Auto) [place] % (Auto) Eos % (Auto) Baso % (Auto) Lymph # (Auto) [place] # (Auto) Eos # (Auto) Baso # (Auto) Abs Immat Gran (auto) Absolute Neuts (auto) Absolute Nucleated RBC Nucleated RBC % (auto) Anion Gap Estim Creat Clear Calc Estimated GFR Random Glucose Calcium Magnesium Total Bilirubin Direct Bilirubin AST ALT Alkaline Phosphatase Total Protein Albumin Lipase Urine Color YELLOW Urine Appearance HAZY Urine pH 6.0 Ur Specific [place] >= 1.030 H Urine Protein 1+ H Urine Glucose (UA) NEG Urine Ketones >=80 Urine Blood 3+ H Urine Nitrite NEG Ur Leukocyte Esterase TRACE H Urine RBC 1-4 Urine WBC 1-4 Ur Squamous Epith Cells 4+ Amorphous Sediment 2+ Urine Bacteria 2+ Urine Mucus TRACE Urine Test NEGATIVE Urine Opiates Screen Not Detected Urine Fentanyl Screen Not Detected Ur Barbiturates Screen Not Detected Ur Phencyclidine Scrn Not Detected Ur Amphetamines Screen Not Detected U Benzodiazepines Scrn Not Detected Urine Cocaine Screen Not Detected U Marijuana (THC) Screen POSITIVE H Ethyl Alcohol COVID-19 ([facility]) COVID-[employer] 02/06/21 02/06/21 13:46 13:47 MCV MCH MCHC RDW Plt Count MPV Immature Gran % (Auto) Neut % (Auto) Lymph % (Auto) [place] % (Auto) Eos % (Auto) Baso % (Auto) Lymph # (Auto) [place] # (Auto) Eos # (Auto) Baso # (Auto) Abs Immat Gran (auto) Absolute Neuts (auto) Absolute Nucleated RBC Nucleated RBC % (auto) Anion Gap Estim Creat Clear Calc Estimated GFR Random Glucose Calcium Magnesium Total Bilirubin Direct Bilirubin AST ALT Alkaline Phosphatase Total Protein Albumin Lipase Urine Color Urine Appearance Urine pH Ur Specific [place] Urine Protein Urine Glucose (UA) Urine Ketones Urine Blood Urine Nitrite Ur Leukocyte Esterase Urine RBC Urine WBC Ur Squamous Epith Cells Amorphous Sediment Urine Bacteria Urine Mucus Urine Test Urine Opiates Screen Urine Fentanyl Screen Ur Barbiturates Screen Ur Phencyclidine Scrn Ur Amphetamines Screen U Benzodiazepines Scrn Urine Cocaine Screen U Marijuana (THC) Screen Ethyl Alcohol < 10 COVID-19 ([facility]) Negative COVID-19 Clin Com See Note Imaging Radiologist's Impressions: Impressions Abdomen Ultrasound 02/06/21 10:38 IMPRESSION: Limited exam. Normal-appearing gallbladder. No gallstones. Echogenic liver probably representing fatty infiltration. Assessment and Plan (1) Marijuana use: Status: Acute (2) Vomiting: Qualifiers: Nausea presence: with nausea Vomiting Intractability: intractable Vomiting type: unspecified Qualified Code(s): R11.2 - Nausea with vomiting, unspecified Status: Acute (3) Acute hypokalemia: Status: Acute 1. Cyclic vomiting secondary to probably marijuana use: Admit to observation Bowel rest, IV fluid, Zofran, ppi. 2. Hypokalemia: Will replete IV potassium. DVT prophylaxis: SubQ Lovenox. Patient management discussed with patient in detail including marijuana contribute to vomiting and current symptoms as well as hypokalemia and medic ations as well as use of IV hydration and antiemetic discussed in detail, in addition also discussed about probably avoid marijuana to prevent further vomiting episodes. Total time spent in assessment and plan coordination as well as lab review and above discussion with the patient 60 minutes Quality Stroke Does the patient have a stroke diagnosis?: No VTE Prior VTE?: No VTE Risk Level:: Medical - moderate - high VTE Device Contraindication: N/A - Device Ordered VTE Drug Contraindication: N/A - Med Ordered
--- NOTE | 2021-02-06 17:09 | PC.NURSE ---
nurse to call back for report
--- NOTE | 2021-02-06 17:30 | PC.NURSE ---
call to med surg no answer
--- NOTE | 2021-02-06 17:37 | PC.NURSE ---
nurse states she will call back
--- NOTE | 2021-02-06 17:49 | PC.NURSE ---
diana santiago took report
[2021-02-06] MEDS: Lactated Ringers 1,000 ML 80 ML IVCONT (18:18)
[2021-02-07 04:00] VITALS: BP 135/78; PULSE 80; RESP 18; TEMP 36.3; O2SAT 100
[2021-02-07] MEDS: Lactated Ringers 1,000 ML 80 ML IVCONT (06:20)
[2021-02-07 06:22] LABS: MANUAL DIFF FLAG NO
[2021-02-07 06:29] LABS: Basophils Percent Auto 0.3 % (0-2); Eosinophils Absolute Auto 0.1 X10*3/uL (0.0-0.4); Eosinophils Percent Auto 0.5 % (0-4); Hemoglobin 12.3 g/dl (12.0-16.0); Imm Gran Abs Auto 0.04 X10*3/uL (0.00-0.03); Imm Gran Pct Auto 0.3 % (0.0-0.4); Lymphocytes Absolute Auto 4.3 X10*3/uL (1.2-4.9); Lymphocytes Percent Auto 37.5 % (20-40); Mean Corpuscular HGB Conc 34.2 g/dl (31.0-35.0); Mean Corpuscular Hemoglobin 30.3 pg (27.0-33.0); Mean Corpuscular Volume 88.7 fL (80-98); Mean Platelet Volume 11.3 fL (9.4-12.3); Monocytes Absolute Auto 0.8 X10*3/uL (0.1-1.2); Monocytes Percent Auto 6.8 % (2-11); Neutrophils Absolute Auto 6.2 X10*3/uL (2.0-8.3); Neutrophils Percent Auto 54.6 % (45-73); Platelet Count 292 X10*3/uL (160-400); Red Blood Count 4.06 X10*6/uL (4.20-5.50); Red Cell Distribution Width 12.4 % (11.0-16.0); White Blood Count 11.4 X10*3/uL (4.8-10.8)
[2021-02-07] MEDS: ondansetron HCL 4 MG/2 ML VIAL IVPUSH (06:39)
[2021-02-07 06:42] LABS: Anion Gap 9 (12-20); Blood Urea Nitrogen 5 mg/dL (9-16); Calcium 9.1 mg/dL (8.4-10.2); Carbon Dioxide 25 mmol/L (22-29); Chloride 110 mmol/L (96-108); Creatinine Clr Calc Pharmacy 158.1; Estimated Glomerular Filt Rate > 60; Glucose Random 95 mg/dL (60-115); Potassium 3.5 mmol/L (3.3-5.1); Sodium 140 mmol/L (135-145)
[2021-02-07 07:30] VITALS: BP 150/73; PULSE 63; RESP 19; TEMP 36.8; O2SAT 97
[2021-02-07] MEDS: Pantoprazole Sodium 40 MG/10 ML VIAL IVPUSH (08:23)
--- NOTE | 2021-02-07 11:11 | P.DS_ITS ---
DS: Providers Provider Date of Service: 02/07/21 Date of admission: 02/06/21 16:14 Date of discharge: 02/07/21 Primary care physician: None Physician DS: Diagnosis Discharge Diagnosis (1) Marijuana use: Status: Acute (2) Vomiting: Status: Acute (3) Acute hypokalemia: Status: Acute DS: Summary Hospital Course Hospital Course: 20 Y/O? female who has came to the hospital because of nausea vomiting .she says she has have these symptoms from 2-3 days and unable to take p.o.. In addition patient was using marijuana at home. She said 1 time she had these similar symptoms long time back that time also she was having her periods. She has mild epigastric pain Denies any new complaint of chest pain or shortness of breath? or fever or chills or headache or blurry vision Denies any cough Denies any weakness or numbness. Hospital course: patient came with intractable nausea vomiting probably related to marijuana use: Started on a gentle hydration, IV Zofran and subsequently patient seems to be improving. Subsequently patient was switched to p.o. Zofran. Going home tolerating diet well. Leukocytosis improving, no urinary symptoms, urine culture mixed. Patient asymptomatic , no need of antiobiotics presently . Patient is to follow-up with the PCP . Above management discussed with the patient in detail including the management of intractable cyclic vomiting, and also use of marijuana adjusting to it in detail- she understand and in agreement with the above plan, time spent 50 minutes and 50% time spent on counseling. Significant findings: As above. Procedures performed: None. Treatment and response: As above. Complications: None. Time Spent with Patient Time attestation: Total time spent providing and/or coordinating discharge services: Discharge coordination time: Greater than 30 minutes Quality: Stroke Does the patient have a stroke diagnosis?: No Physical Exam Vital Signs: Vital Signs: Last Vital Signs Temp 98.2 F 02/07/21 07:30 Pulse 63 02/07/21 07:30 Resp 19 02/07/21 07:30 BP 150/73 H 02/07/21 07:30 Pulse Ox 97 02/07/21 07:30 Body Mass Index 43.4 Physical exam: Appearance: Alert.? Oriented X3.? not in distress.? Eyes: Pupils equal, round and reactive to light.? Sclera nonicteric.? ENT: Pharynx normal.? Moist mucous membranes. cvs: rrr, [id number] , no murmur res: clear to auscultation ,no rhonchii or wheezing abd: no rebound or guarding ,nt, bs present. ext pulses present , no cyanosis ,Gait well balanced well coordinated. neuro: axo3 , nonfocal. DS: Data Data Completed and Pending Labs on day of discharge: Laboratory Results - last 24 hr 02/06/21 02/06/21 02/06/21 11:39 11:39 11:39 WBC 13.6 H RBC 4.62 Hgb 14.0 Hct 40.3 MCV 87.2 MCH 30.3 MCHC 34.7 RDW 12.3 Plt Count 349 MPV 11.1 Immature Gran % (Auto) 0.4 Neut % (Auto) 77.7 H Lymph % (Auto) 17.3 L [place] % (Auto) 4.1 Eos % (Auto) 0.1 Baso % (Auto) 0.4 Lymph # (Auto) 2.4 [place] # (Auto) 0.6 Eos # (Auto) 0.0 Baso # (Auto) 0.1 Abs Immat Gran (auto) 0.05 H Absolute Neuts (auto) 10.5 H Absolute Nucleated RBC 0.000 Nucleated RBC % (auto) 0.0 Sodium 139 Potassium 3.2 L Chloride 108 Carbon Dioxide 20 L Anion Gap 14 BUN 6 L Creatinine 0.72 Estim Creat Clear Calc 149.3 Estimated GFR > 60 Random Glucose 113 Calcium 9.6 Magnesium 1.7 Total Bilirubin 0.5 Direct Bilirubin 0.2 AST 17 ALT 16 Alkaline Phosphatase 81 Total Protein 7.2 Albumin 4.0 Lipase 27 Urine Color Urine Appearance Urine pH Ur Specific [place] Urine Protein Urine Glucose (UA) Urine Ketones Urine Blood Urine Nitrite Ur Leukocyte Esterase Urine RBC Urine WBC Ur Squamous Epith Cells Amorphous Sediment Urine Bacteria Urine Mucus Urine Test Urine Opiates Screen Urine Fentanyl Screen Ur Barbiturates Screen Ur Phencyclidine Scrn Ur Amphetamines Screen U Benzodiazepines Scrn Urine Cocaine Screen U Marijuana (THC) Screen Ethyl Alcohol COVID-19 ([facility]) COVID-19 Clin Com 02/06/21 02/06/21 02/06/21 13:42 13:42 13:42 WBC RBC Hgb Hct MCV MCH MCHC RDW Plt Count MPV Immature Gran % (Auto) Neut % (Auto) Lymph % (Auto) [place] % (Auto) Eos % (Auto) Baso % (Auto) Lymph # (Auto) [place] # (Auto) Eos # (Auto) Baso # (Auto) Abs Immat Gran (auto) Absolute Neuts (auto) Absolute Nucleated RBC Nucleated RBC % (auto) Sodium Potassium Chloride Carbon Dioxide Anion Gap BUN Creatinine Estim Creat Clear Calc Estimated GFR Random Glucose Calcium Magnesium Total Bilirubin Direct Bilirubin AST ALT Alkaline Phosphatase Total Protein Albumin Lipase Urine Color YELLOW Urine Appearance HAZY Urine pH 6.0 Ur Specific [place] >= 1.030 H Urine Protein 1+ H Urine Glucose (UA) NEG Urine Ketones >=80 Urine Blood 3+ H Urine Nitrite NEG Ur Leukocyte Esterase TRACE H Urine RBC 1-4 Urine WBC 1-4 Ur Squamous Epith Cells 4+ Amorphous Sediment 2+ Urine Bacteria 2+ Urine Mucus TRACE Urine Test NEGATIVE Urine Opiates Screen Not Detected Urine Fentanyl Screen Not Detected Ur Barbiturates Screen Not Detected Ur Phencyclidine Scrn Not Detected Ur Amphetamines Screen Not Detected U Benzodiazepines Scrn Not Detected Urine Cocaine Screen Not Detected U Marijuana (THC) Screen POSITIVE H Ethyl Alcohol COVID-19 ([facility]) COVID-19 Clin Com 02/06/21 02/06/21 02/07/21 13:46 13:47 05:59 WBC 11.4 H RBC 4.06 L Hgb 12.3 Hct 36.0 L MCV 88.7 MCH 30.3 MCHC 34.2 RDW 12.4 Plt Count 292 MPV 11.3 Immature Gran % (Auto) 0.3 Neut % (Auto) 54.6 Lymph % (Auto) 37.5 [place] % (Auto) 6.8 Eos % (Auto) 0.5 Baso % (Auto) 0.3 Lymph # (Auto) 4.3 [place] # (Auto) 0.8 Eos # (Auto) 0.1 Baso # (Auto) 0.0 Abs Immat Gran (auto) 0.04 H Absolute Neuts (auto) 6.2 Absolute Nucleated RBC 0.000 Nucleated RBC % (auto) 0.0 Sodium Potassium Chloride Carbon Dioxide Anion Gap BUN Creatinine Estim Creat Clear Calc Estimated GFR Random Glucose Calcium Magnesium Total Bilirubin Direct Bilirubin AST ALT Alkaline Phosphatase Total Protein Albumin Lipase Urine Color Urine Appearance Urine pH Ur Specific [place] Urine Protein Urine Glucose (UA) Urine Ketones Urine Blood Urine Nitrite Ur Leukocyte Esterase Urine RBC Urine WBC Ur Squamous Epith Cells Amorphous Sediment Urine Bacteria Urine Mucus Urine Test Urine Opiates Screen Urine Fentanyl Screen Ur Barbiturates Screen Ur Phencyclidine Scrn Ur Amphetamines Screen U Benzodiazepines Scrn Urine Cocaine Screen U Marijuana (THC) Screen Ethyl Alcohol < 10 COVID-19 ([facility]) Negative COVID-19 Clin Com See Note 02/07/21 05:59 WBC RBC Hgb Hct MCV MCH MCHC RDW Plt Count MPV Immature Gran % (Auto) Neut % (Auto) Lymph % (Auto) [place] % (Auto) Eos % (Auto) Baso % (Auto) Lymph # (Auto) [place] # (Auto) Eos # (Auto) Baso # (Auto) Abs Immat Gran (auto) Absolute Neuts (auto) Absolute Nucleated RBC Nucleated RBC % (auto) Sodium 140 Potassium 3.5 Chloride 110 H Carbon Dioxide 25 Anion Gap 9 L BUN 5 L Creatinine 0.68 Estim Creat Clear Calc 158.1 Estimated GFR > 60 Random Glucose 95 Calcium 9.1 Magnesium Total Bilirubin Direct Bilirubin AST ALT Alkaline Phosphatase Total Protein Albumin Lipase Urine Color Urine Appearance Urine pH Ur Specific [place] Urine Protein Urine Glucose (UA) Urine Ketones Urine Blood Urine Nitrite Ur Leukocyte Esterase Urine RBC Urine WBC Ur Squamous Epith Cells Amorphous Sediment Urine Bacteria Urine Mucus Urine Test Urine Opiates Screen Urine Fentanyl Screen Ur Barbiturates Screen Ur Phencyclidine Scrn Ur Amphetamines Screen U Benzodiazepines Scrn Urine Cocaine Screen U Marijuana (THC) Screen Ethyl Alcohol COVID-19 ([facility]) COVID-19 Clin Com Discharge Plan Discharge Patient Disposition: Home, Self-Care Discharge Diagnosis: cyclic vomiting Referrals: Physician,None [Primary Care Provider] - 1 Week Discharge Medications: New ondansetron HCl [Zofran] 4 mg tablet 4 mg PO Q8H Qty: 7 RF: 0 Continued diphenhydramine HCl [Benadryl] 25 mg Capsule 25 mg PO DAILY PRN (Reason: Allergy Symptoms) RF: 0 ibuprofen 600 mg tablet 600 mg PO Q6H PRN (Reason: pain) Qty: 90 RF: 0 metoclopramide HCl [Reglan] 10 mg tablet 10 mg PO Q8H PRN (Reason: nausea and vomiting) Qty: 14 RF: 0 Discharge Orders: Discharge Order (Routine); Ordered 02/07/21 Ordered By: Guanaco Levine Diet: advance to usual diet Activity on Discharge: As tolerated Stand Alone Forms: Patient Portal Discharge page Care Plan Goals: patient came with intractable nausea vomiting probably related to marijuana use: Started on a gentle hydration, IV Zofran and subsequently patient seems to be improving. Subsequently patient was switched to p.o. Zofran. Going home tolerating diet well. Leukocytosis improving, no urinary symptoms Patient asymptomatic . Patient is to follow-up with the PCP . Health Concerns: as above. Plan of Treatment: As above. Assessment: As above.
--- NOTE | 2021-02-07 11:24 | MHC.CM.PN ---
CM MET WITH PT AND S/O, REBA, WHO WAS AT BEDSIDE. PT REPORTS SHE LIVES WITH REBA AND IS INDEPENDENT WITH ALL CARE AND MOBILITY. SHE DENIES USING DME OR HAVING HOME/COMMUNITY SERVICES. PT DOES NOT HAVE A PCP, IMPORTANCE, AND PROCESS, OF OBTAINING ONE DISCUSSED. PT DID COMPLETE A HCP TODAY NAMING HER PARTNER, REBA KUMAR ([phone]) HER AGENT. PT IS CLEARED TO DC HOME TODAY WITH NO SERVICES
[2021-02-07 11:32] VITALS: BP 119/85; PULSE 69; RESP 19; TEMP 36.7; O2SAT 100
== END 2021-02-07 13:18 | disposition home or self-care (01) ==
LOC: HO.ED 15:08 → HO.EDOVER 16:27 → HO.S3 17:05
PROVIDERS: Admitting Provider Internal Medicine; Emergency Provider Emergency Medicine; Visit Provider Internal Medicine
DX: F12.90 Cannabis use, unspecified, uncomplicated (principal); R11.15 Cyclical vomiting syndrome unrelated to migraine; E87.6 Hypokalemia; F41.8 Other specified anxiety disorders; Z20.822 Contact with and (suspected) exposure to COVID-19; Z79.899 Other long term (current) drug therapy
CPT/HCPCS: 36415; 76705; 80048; 80076; 80307; 81001; 81003; 81025; 82077; 83690; 83735; 85025; 87086; 87635; 96361; 96365; 96366; 96372; 96375; 96376; 99218; 99285; 99291; J1200; J2405; J2765

== ENCOUNTER 2022-06-06 10:58 | Emergency (ER) | payer OTHER, SELFPAY ==
--- NOTE | ~2022-06-06 | CT_ITS ---
EXAMINATION: CT ABDOMEN AND PELVIS WITHOUT CONTRAST CLINICAL INFORMATION: Left abdominal pain. Feeling lump inside. COMPARISON: Right upper quadrant abdomen 02/06/2021. TECHNIQUE: Multidetector volumetric imaging was performed from the superior aspect of the liver through the pubic symphysis. Sagittal and coronal reformatted images were obtained on the technologist's workstation. This CT examination was performed using dose optimization techniques as appropriate, variously including the following: *Automated exposure control *Adjustment of mA and/or kV according to patient size (this includes techniques or standardized protocols for targeted exams where dose is matched to indication/reason for exam; i.e. extremities or head) *Use of iterative reconstruction technique DLP: 864 mGy-cm FINDINGS: LUNG BASES: Incidental minimal basilar subpleural atelectasis of the lungs. LIVER, GALLBLADDER, AND BILIARY TREE: The liver is normal in size, shape, and attenuation. No focal hepatic lesion or biliary ductal dilatation is present. The gallbladder is unremarkable with no evidence of radiopaque gallstones, gallbladder wall thickening, or obvious pericholecystic inflammatory changes. PANCREAS: Unremarkable. SPLEEN: Unremarkable. ADRENAL GLANDS: Unremarkable. KIDNEYS AND URETERS: The kidneys are normal in size, shape, and attenuation. No hydronephrosis, hydroureter, or calculi seen. No perinephric stranding. BLADDER: Decompressed. GASTROINTESTINAL TRACT: Normal appendix. No free intraperitoneal fluid or gas collections. No intestinal dilatation or mural thickening. Normal appearance of the sigmoid mesentery and small bowel mesentery. Normal appearance of the stomach. Mild, physiologic gaseous distention of the internally visualized distal esophagus. No hiatal hernia noted. ABDOMINAL WALL: No significant hernia is appreciated. LYMPH NODES: Normal. VASCULAR: Incidental note made of pelvic phleboliths. PELVIC VISCERA: Anteverted uterus. No adnexal lesions. OSSEOUS STRUCTURES: Unremarkable. CT/CT abdomen pelvis wo IV con IMPRESSION: Normal unenhanced CT of the abdomen and pelvis. No urolithiasis. No free intraperitoneal fluid or gas collections. No abdominal wall hernias.
[2022-06-06 11:34] VITALS: BP 121/76; PULSE 74; RESP 16; TEMP 36.1; O2SAT 98; BMI 43.4
--- NOTE | 2022-06-06 11:36 | ED.ABDPAIN ---
HPI - Abdominal Pain General Chief Complaint: Abdominal Pain <MARIO ALBERTO Grant Last Filed: 06/06/22 11:39> Stated Complaint: Hard lump on L side of stomach <MARIO ALBERTO Grant Last Filed: 06/06/22 11:39> Time Seen by Provider: 06/06/22 12:17 <MARIO ALBERTO Grant Last Filed: 06/06/22 11:39> Source: patient <MARIO ALBERTO He Last Filed: 06/06/22 18:47> Mode of arrival: ambulatory <MARIO ALBERTO He Last Filed: 06/06/22 18:47> History of Present Illness HPI narrative: 22-year-old female with a past medical history of anxiety, depression, sinusitis, presenting to the ED complaining of painful lump to left side times a couple years. Reports feels like area is growing with associated nausea, vomiting, and diarrhea x yesterday. Denies fever, chills, dysuria /hematuria, suspicious food intake <MARIO ALBERTO He Last Filed: 06/06/22 18:47> MD elicited complaint: abdominal pain <MARIO ALBERTO He Last Filed: 06/06/22 18:47> Onset (ago): year(s) <MARIO ALBERTO He Last Filed: 06/06/22 18:47> Related Data Home Medications: Home Medications Medication Instructions Recorded Confirmed diphenhydramine HCl 25 mg capsule 25 mg PO DAILY PRN Allergy Symptoms 02/06/21 02/06/21 (Benadryl) Previous Rx's Medication Instructions Recorded ibuprofen 600 mg tablet 600 mg PO Q6H PRN pain #90 tabs 02/05/21 metoclopramide HCl 10 mg tablet 10 mg PO Q8H PRN nausea and 02/05/21 (Reglan) vomiting #14 tabs ondansetron HCl 4 mg tablet 4 mg PO Q8H #7 tabs 02/07/21 (Zofran) <MARIO ALBERTO Grant Last Filed: 06/06/22 11:39> Allergies/Adverse Reactions: Allergies Allergy/AdvReac Type Severity Reaction Status Date / Time No Known Allergies Allergy Verified 02/06/21 10:27 <MARIO ALBERTO Grant Last Filed: 06/06/22 11:39> Review of Systems Review of Systems Constitutional: No Fever, No Chills ENT/Mouth: No Ear Pain, No Nasal Congestion, No sore throat, No Rhinorrhea, No Swallowing Difficulty Cardiovascular: No Chest Pain, No SOB Respiratory: No Cough, No Sputum, No Wheezing Gastrointestinal: No Nausea, No Vomiting, No Diarrhea, No Constipation, + Abdominal pain Genitourinary: No Dysuria, No Urinary Frequency, No Hematuria, No Urinary Incontinence/retention Musculoskeletal: No joint pain, No Myalgias, No Joint Swelling Skin: + Skin Lesions, No rash Neuro: No Weakness, No Numbness, No Paresthesias <MARIO ALBERTO He - Last Filed: 06/06/22 18:47> Yes all other systems are reviewed and are negative <MARIO ALBERTO He - Last Filed: 06/06/22 18:47> Constitutional: Reports as per HPI <MARIO ALBERTO He - Last Filed: 06/06/22 18:47> [facility] Past Medical History Attestation statement: The following information was validated with the patient. <MARIO ALBERTO He - Last Filed: 06/06/22 18:47> Medical History: Medical History Anxiety Depression Sinusitis <MARIO ALBERTO Grant - Last Filed: 06/06/22 11:39> Social History Social History: Social History Alcohol intake: never Patient Tobacco Use Status: Never used Tobacco Substance Use Type: Marijuana Advance Directives: No Advance Directives Information Provided: Yes Advance Directives Date on File: 02/06/21 service: No Current occupational status: unemployed <MARIO ALBERTO Grant Last Filed: 06/06/22 11:39> Physical Exam ED Vital Signs: Vital Signs - 24 hr 06/06/22 11:34 06/06/22 14:56 Temperature 96.9 F 96.9 F Pulse Rate 74 60 Respiratory Rate 16 18 Blood Pressure 121/76 109/78 Pulse Oximetry 98 99 Oxygen Delivery Method Room Air BMI result Body Mass Index 43.4 <MARIO ALBERTO Grant Last Filed: 06/06/22 11:39> Vital Signs - 24 hr 06/06/22 11:34 06/06/22 14:56 Temperature 96.9 F 96.9 F Pulse Rate 74 60 Respiratory Rate 16 18 Blood Pressure 121/76 109/78 Pulse Oximetry 98 99 Oxygen Delivery Method Room Air BMI result Body Mass Index 43.4 <MARIO ALBERTO He Last Filed: 06/06/22 18:47> Const General: cooperative, healthy appearing and no acute distress <MARIO ALBERTO He - Last Filed: 06/06/22 18:47> Orientation/consciousness: patient oriented x3 <MARIO ALBERTO He Last Filed: 06/06/22 18:47> Limitations: no limitations <MARIO ALBERTO He Last Filed: 06/06/22 18:47> HENMT Head: Yes normal to inspection and Yes atraumatic <MARIO ALBERTO He - Last Filed: 06/06/22 18:47> Ears: hearing grossly normal bilaterally <MARIO ALBERTO He - Last Filed: 06/06/22 18:47> General nose exam: Normal external nose present <MARIO ALBERTO He Last Filed: 06/06/22 18:47> Face and sinus: Yes normal facial exam <MARIO ALBERTO He Last Filed: 06/06/22 18:47> Eyes General: appearance normal, both eyes and all related structures <MARIO ALBERTO He Last Filed: 06/06/22 18:47> EOM: EOMs intact bilaterally <MARIO ALBERTO He - Last Filed: 06/06/22 18:47> Neck Neck: Yes normal visual inspection and Yes no meningeal signs <MARIO ALBERTO He Last Filed: 06/06/22 18:47> Resp Effort & Inspection: normal respiratory effort and no respiratory distress <MARIO ALBERTO He Last Filed: 06/06/22 18:47> Cardio Rate: regular rate <MARIO ALBERTO He Last Filed: 06/06/22 18:47> Heart sounds: S1 normal heart sound present and S2 normal heart sound present <MARIO ALBERTO He Last Filed: 06/06/22 18:47> GI Other: small superficial lump noted to left abdomen, mobile, site of tenderness, no fluctuance/induration or erythema <MARIO ALBERTO He Last Filed: 06/06/22 18:47> Inspection: Yes normal to inspection <MARIO ALBERTO He Last Filed: 06/06/22 18:47> Palpation (GI): Soft to palpation, Tenderness to palpation present (GI) ( left abdomen) with no rebound tenderness, no guarding and not rigid <MARIO ALBERTO He Last Filed: 06/06/22 18:47> Skin Rashes: no rashes <MARIO ALBERTO He Last Filed: 06/06/22 18:47> Wounds: no wounds <MARIO ALBERTO He Last Filed: 06/06/22 18:47> Neuro General: patient oriented x3, tone normal and no meningeal signs <MARIO ALBERTO He Last Filed: 06/06/22 18:47> Gait exam (Neuro): Normal gait present <MARIO ALBERTO He Last Filed: 06/06/22 18:47> Extrem General: Yes normal to inspection <MARIO ALBERTO He Last Filed: 06/06/22 18:47> Course Course Course Narrative: NATHANAEL-11:36AM - 22yoDenise presenting to the ED c c/o of a lump to the left aspect of her abd for years. Intermittent N/V. Today awoke with N/V this is why she came today. No fevers. Reports she was seen here on 02/06/22 told its because I smoke weed . Reporys she had an Ultrasound and they did not image her lump . Denies any other symptoms related to this. Plan: Stable. Labs and dry CT ordered. Pt sent back to waiting Room to be evaluated in the ED. <MARIO ALBERTO Grant Last Filed: 06/06/22 11:39> RME-11:36AM - 22yoF presenting to the ED c c/o of a lump to the left aspect of her abd for years. Intermittent N/V. Today awoke with N/V this is why she came today. No fevers. Reports she was seen here on 02/06/22 told its because I smoke weed . Reporys she had an Ultrasound and they did not image her lump . Denies any other symptoms related to this. Plan: Stable. Labs and dry CT ordered. Pt sent back to waiting Room to be evaluated in the ED. -1544-- mild leukocytosis of 13.1 likely reactive from nausea/vomiting - labs otherwise reassuring. HCG negative - COVID-19/influenza/ RSV negative CT abdomen pelvis wo IV con IMPRESSION: Normal unenhanced CT of the abdomen and pelvis. No urolithiasis. No free intraperitoneal fluid or gas collections. No abdominal wall hernias.? > patient tolerating p.o. in the ED without nausea or vomiting > Results discussed with patient including worrisome signs and symptoms and strict return precautions, and when to return to the emergency department. They verbalized understanding and feel safe for discharge at this time. <MARIO ALBERTO He - Last Filed: 06/06/22 18:47> Medical Decision Making Medical Decision Making [facility] Narrative: 22-year-old female with a past medical history of anxiety, depression, sinusitis, presenting to the ED complaining of painful lump to left side x a couple years. On exam VSS, NAD, nontoxic appearing, abdomen soft, small lump noted to left abdomen with tenderness, mobile, no fluctuance/induration, no rebound or guarding. Concern for ? diverticulitis/diverticulosis vs mesenteric adenopathy vs superficial lipoma. Lower suspicion for underlying abscess, cholecystitis/lithiasis or pancreatitis plan: Labs, UA, CT AP, p.o. challenge, re-evaluate <MARIO ALBERTO He - Last Filed: 06/06/22 18:47> Differential Diagnosis Differential Diagnoses: The differential diagnosis associated with the presentation includes <MARIO ALBERTO He - Last Filed: 06/06/22 18:47> as above <MARIO ALBERTO He - Last Filed: 06/06/22 18:47> Lab Data [facility] Lab Attestation statement: I reviewed the patient's lab results. <MARIO ALBERTO He - Last Filed: 06/06/22 18:47> Result Diagrams: 06/06/22 12:10 06/06/22 12:10 <MARIO ALBERTO Grant - Last Filed: 06/06/22 11:39> Labs: Lab Results 06/06/22 06/06/22 06/06/22 Range/Units 12:09 12:10 12:10 WBC 13.1 H (4.8-10.8) X10*3/uL RBC 4.51 (4.20-5.50) X10*6/uL Hgb 13.6 (12.0-16.0) g/dl Hct 41.4 (37.0-47.0) % MCV 91.8 (80.0-98.0) fL MCH 30.2 (27.0-33.0) pg MCHC 32.9 (31.0-35.0) g/dl RDW 12.3 (11.0-16.0) % Plt Count 337 (160-400) X10*3/uL MPV 10.6 (9.4-12.3) fL Immature Gran % (Auto) 0.2 (0.0-0.4) % Neut % (Auto) 69.6 (45-73) % Lymph % (Auto) 25.2 (20-40) % Hitchcock % (Auto) 4.2 (2-11) % Eos % (Auto) 0.4 (0-4) % Baso % (Auto) 0.4 (0-2) % Lymph # (Auto) 3.3 (1.2-4.9) X10*3/uL Hitchcock # (Auto) 0.6 (0.1-1.2) X10*3/uL Eos # (Auto) 0.1 (0.0-0.4) X10*3/uL Baso # (Auto) 0.1 (0.0-0.2) X10*3/uL Abs Immat Gran (auto) 0.03 (0.00-0.03) X10*3/uL Absolute Neuts (auto) 9.1 H (2.0-8.3) x10*3/uL Absolute Nucleated RBC 0.000 (0.0-0.012) X10*3/uL Nucleated RBC % (auto) 0.0 (0.0-0.2) /100WBC PT 12.8 (10.0-13.1) SEC INR 1.1 (0.9-1.1) Sodium 141 (135-145) mmol/L Potassium 4.1 (3.3-5.1) mmol/L Chloride 105 (96-108) mmol/L Carbon Dioxide 29 (22-29) mmol/L Anion Gap 11 L (12-20) BUN 7 L (9-16) mg/dL Creatinine 0.68 (0.5-1.4) mg/dL Estim Creat Clear Calc 155.5 Estimated GFR > 60 Random Glucose 98 (60-115) mg/dL Calcium 10.6 H D (8.4-10.2) mg/dL Magnesium 1.7 (1.6-2.6) mg/dL Total Bilirubin 0.5 (0.0-1.0) mg/dL AST 14 (5-31) U/L ALT 12 (0-31) U/L Alkaline Phosphatase 87 (39-117) U/L Total Protein 7.3 (6.5-8.0) g/dL Albumin 4.1 (3.5-5.0) g/dL Beta HCG, Quant < 2 mIU/mL Influenza Type A (PCR) (Negative) Influenza Type B (PCR) (Negative) RSV RNA Qual (PCR) (Negative) SARS-CoV-2 RNA (RT-PCR) (Negative) 06/06/22 Range/Units 12:10 WBC (4.8-10.8) X10*3/uL RBC (4.20-5.50) X10*6/uL Hgb (12.0-16.0) g/dl Hct (37.0-47.0) % MCV (80.0-98.0) fL MCH (27.0-33.0) pg MCHC (31.0-35.0) g/dl RDW (11.0-16.0) % Plt Count (160-400) X10*3/uL MPV (9.4-12.3) fL Immature Gran % (Auto) (0.0-0.4) % Neut % (Auto) (45-73) % Lymph % (Auto) (20-40) % Hitchcock % (Auto) (2-11) % Eos % (Auto) (0-4) % Baso % (Auto) (0-2) % Lymph # (Auto) (1.2-4.9) X10*3/uL Hitchcock # (Auto) (0.1-1.2) X10*3/uL Eos # (Auto) (0.0-0.4) X10*3/uL Baso # (Auto) (0.0-0.2) X10*3/uL Abs Immat Gran (auto) (0.00-0.03) X10*3/uL Absolute Neuts (auto) (2.0-8.3) x10*3/uL Absolute Nucleated RBC (0.0-0.012) X10*3/uL Nucleated RBC % (auto) (0.0-0.2) /100WBC PT (10.0-13.1) SEC INR (0.9-1.1) Sodium (135-145) mmol/L Potassium (3.3-5.1) mmol/L Chloride (96-108) mmol/L Carbon Dioxide (22-29) mmol/L Anion Gap (12-20) BUN (9-16) mg/dL Creatinine (0.5-1.4) mg/dL Estim Creat Clear Calc Estimated GFR Random Glucose (60-115) mg/dL Calcium (8.4-10.2) mg/dL Magnesium (1.6-2.6) mg/dL Total Bilirubin (0.0-1.0) mg/dL AST (5-31) U/L ALT (0-31) U/L Alkaline Phosphatase (39-117) U/L Total Protein (6.5-8.0) g/dL Albumin (3.5-5.0) g/dL Beta HCG, Quant mIU/mL Influenza Type A (PCR) NEGATIVE (Negative) Influenza Type B (PCR) NEGATIVE (Negative) RSV RNA Qual (PCR) NEGATIVE (Negative) SARS-CoV-2 RNA (RT-PCR) NEGATIVE (Negative) <MARIO ALBERTO Grant - Last Filed: 06/06/22 11:39> Lab Results 06/06/22 06/06/22 06/06/22 Range/Units 12:09 12:10 12:10 WBC 13.1 H (4.8-10.8) X10*3/uL RBC 4.51 (4.20-5.50) X10*6/uL Hgb 13.6 (12.0-16.0) g/dl Hct 41.4 (37.0-47.0) % MCV 91.8 (80.0-98.0) fL MCH 30.2 (27.0-33.0) pg MCHC 32.9 (31.0-35.0) g/dl RDW 12.3 (11.0-16.0) % Plt Count 337 (160-400) X10*3/uL MPV 10.6 (9.4-12.3) fL Immature Gran % (Auto) 0.2 (0.0-0.4) % Neut % (Auto) 69.6 (45-73) % Lymph % (Auto) 25.2 (20-40) % Hitchcock % (Auto) 4.2 (2-11) % Eos % (Auto) 0.4 (0-4) % Baso % (Auto) 0.4 (0-2) % Lymph # (Auto) 3.3 (1.2-4.9) X10*3/uL Hitchcock # (Auto) 0.6 (0.1-1.2) X10*3/uL Eos # (Auto) 0.1 (0.0-0.4) X10*3/uL Baso # (Auto) 0.1 (0.0-0.2) X10*3/uL Abs Immat Gran (auto) 0.03 (0.00-0.03) X10*3/uL Absolute Neuts (auto) 9.1 H (2.0-8.3) x10*3/uL Absolute Nucleated RBC 0.000 (0.0-0.012) X10*3/uL Nucleated RBC % (auto) 0.0 (0.0-0.2) /100WBC PT 12.8 (10.0-13.1) SEC INR 1.1 (0.9-1.1) Sodium 141 (135-145) mmol/L Potassium 4.1 (3.3-5.1) mmol/L Chloride 105 (96-108) mmol/L Carbon Dioxide 29 (22-29) mmol/L Anion Gap 11 L (12-20) BUN 7 L (9-16) mg/dL Creatinine 0.68 (0.5-1.4) mg/dL Estim Creat Clear Calc 155.5 Estimated GFR > 60 Random Glucose 98 (60-115) mg/dL Calcium 10.6 H D (8.4-10.2) mg/dL Magnesium 1.7 (1.6-2.6) mg/dL Total Bilirubin 0.5 (0.0-1.0) mg/dL AST 14 (5-31) U/L ALT 12 (0-31) U/L Alkaline Phosphatase 87 (39-117) U/L Total Protein 7.3 (6.5-8.0) g/dL Albumin 4.1 (3.5-5.0) g/dL Beta HCG, Quant < 2 mIU/mL Influenza Type A (PCR) (Negative) Influenza Type B (PCR) (Negative) RSV RNA Qual (PCR) (Negative) SARS-CoV-2 RNA (RT-PCR) (Negative) 06/06/22 Range/Units 12:10 WBC (4.8-10.8) X10*3/uL RBC (4.20-5.50) X10*6/uL Hgb (12.0-16.0) g/dl Hct (37.0-47.0) % MCV (80.0-98.0) fL MCH (27.0-33.0) pg MCHC (31.0-35.0) g/dl RDW (11.0-16.0) % Plt Count (160-400) X10*3/uL MPV (9.4-12.3) fL Immature Gran % (Auto) (0.0-0.4) % Neut % (Auto) (45-73) % Lymph % (Auto) (20-40) % Hitchcock % (Auto) (2-11) % Eos % (Auto) (0-4) % Baso % (Auto) (0-2) % Lymph # (Auto) (1.2-4.9) X10*3/uL Hitchcock # (Auto) (0.1-1.2) X10*3/uL Eos # (Auto) (0.0-0.4) X10*3/uL Baso # (Auto) (0.0-0.2) X10*3/uL Abs Immat Gran (auto) (0.00-0.03) X10*3/uL Absolute Neuts (auto) (2.0-8.3) x10*3/uL Absolute Nucleated RBC (0.0-0.012) X10*3/uL Nucleated RBC % (auto) (0.0-0.2) /100WBC PT (10.0-13.1) SEC INR (0.9-1.1) Sodium (135-145) mmol/L Potassium (3.3-5.1) mmol/L Chloride (96-108) mmol/L Carbon Dioxide (22-29) mmol/L Anion Gap (12-20) BUN (9-16) mg/dL Creatinine (0.5-1.4) mg/dL Estim Creat Clear Calc Estimated GFR Random Glucose (60-115) mg/dL Calcium (8.4-10.2) mg/dL Magnesium (1.6-2.6) mg/dL Total Bilirubin (0.0-1.0) mg/dL AST (5-31) U/L ALT (0-31) U/L Alkaline Phosphatase (39-117) U/L Total Protein (6.5-8.0) g/dL Albumin (3.5-5.0) g/dL Beta HCG, Quant mIU/mL Influenza Type A (PCR) NEGATIVE (Negative) Influenza Type B (PCR) NEGATIVE (Negative) RSV RNA Qual (PCR) NEGATIVE (Negative) SARS-CoV-2 RNA (RT-PCR) NEGATIVE (Negative) <MARIO ALBERTO He - Last Filed: 06/06/22 18:47> Radiology Impression Discussion of test interpretation with radiology: I have reviewed the radiologist's reading. <MARIO ALBERTO He - Last Filed: 06/06/22 18:47> External Record Review prior ED record <MARIO ALBERTO He - Last Filed: 06/06/22 18:47> Prescription Management I considered prescription management with: Pain Medication <MARIO ALBERTO He Last Filed: 06/06/22 18:47> Discharge Plan Discharge Clinical Impression: Abdominal pain <MARIO ALBERTO Grant - Last Filed: 06/06/22 11:39> Patient Disposition: Home, Self-Care <MARIO ALBERTO Grant Last Filed: 06/06/22 11:39> Instructions: Abdominal Pain (ED) <MARIO ALBERTO Grant Last Filed: 06/06/22 11:39> Additional Instructions: your blood work and imaging studies were reassuring. Please follow-up with gastroenterology and your primary care doctor. If symptoms persist or worsen, pain becomes unbearable, you feel lymph is growing, changing colors, red, you have fever return to the emergency department. <MARIO ALBERTO Grant - Last Filed: 06/06/22 11:39> Prescriptions: No Action diphenhydramine HCl [Benadryl] 25 mg Capsule 25 mg PO DAILY PRN (Reason: Allergy Symptoms) ondansetron HCl [Zofran] 4 mg tablet 4 mg PO Q8H Qty: 7 0RF ibuprofen 600 mg tablet 600 mg PO Q6H PRN (Reason: pain) Qty: 90 0RF metoclopramide HCl [Reglan] 10 mg tablet 10 mg PO Q8H PRN (Reason: nausea and vomiting) Qty: 14 0RF <MARIO ALBERTO Grant - Last Filed: 06/06/22 11:39> Referrals: [facility] [place] [facility] [Provider Group] - 1 week <MARIO ALBERTO Grant - Last Filed: 06/06/22 11:39> Interventions: ED Discharge Assessment Last Done: 06/06/22 16:29 <MARIO ALBERTO Grant - Last Filed: 06/06/22 11:39> Discharge Date/Time: 06/06/22 16:30 <MARIO ALBERTO Grant - Last Filed: 06/06/22 11:39>
[2022-06-06 12:15] LABS: MANUAL DIFF FLAG NO
[2022-06-06 12:17] LABS: Basophils Absolute Auto 0.1 X10*3/uL (0.0-0.2); Basophils Percent Auto 0.4 % (0-2); Eosinophils Absolute Auto 0.1 X10*3/uL (0.0-0.4); Eosinophils Percent Auto 0.4 % (0-4); Hematocrit 41.4 % (37.0-47.0); Hemoglobin 13.6 g/dl (12.0-16.0); Imm Gran Abs Auto 0.03 X10*3/uL (0.00-0.03); Imm Gran Pct Auto 0.2 % (0.0-0.4); Lymphocytes Absolute Auto 3.3 X10*3/uL (1.2-4.9); Lymphocytes Percent Auto 25.2 % (20-40); Mean Corpuscular HGB Conc 32.9 g/dl (31.0-35.0); Mean Corpuscular Hemoglobin 30.2 pg (27.0-33.0); Mean Corpuscular Volume 91.8 fL (80.0-98.0); Mean Platelet Volume 10.6 fL (9.4-12.3); Monocytes Absolute Auto 0.6 X10*3/uL (0.1-1.2); Monocytes Percent Auto 4.2 % (2-11); Neutrophils Absolute Auto 9.1 x10*3/uL (2.0-8.3); Neutrophils Percent Auto 69.6 % (45-73); Platelet Count 337 X10*3/uL (160-400); Red Blood Count 4.51 X10*6/uL (4.20-5.50); Red Cell Distribution Width 12.3 % (11.0-16.0); White Blood Count 13.1 X10*3/uL (4.8-10.8)
[2022-06-06 12:23] LABS: INTERNATIONAL NORM RATIO 1.1 (0.9-1.1); Prothrombin Time 12.8 SEC (10.0-13.1)
[2022-06-06 12:38] LABS: Alanine Aminotransferase 12 U/L (0-31); Albumin Level 4.1 g/dL (3.5-5.0); Alkaline Phosphatase 87 U/L (39-117); Anion Gap 11 (12-20); Aspartate Amino Transferase 14 U/L (5-31); Bilirubin Total 0.5 mg/dL (0.0-1.0); Blood Urea Nitrogen 7 mg/dL (9-16); Calcium 10.6 mg/dL (8.4-10.2); Carbon Dioxide 29 mmol/L (22-29); Chloride 105 mmol/L (96-108); Creatinine Clr Calc Pharmacy 155.5; Estimated Glomerular Filt Rate > 60; Glucose Random 98 mg/dL (60-115); Magnesium 1.7 mg/dL (1.6-2.6); Potassium 4.1 mmol/L (3.3-5.1); Sodium 141 mmol/L (135-145); Total Protein 7.3 g/dL (6.5-8.0)
[2022-06-06 12:44] LABS: HCG Quantitative < 2 mIU/mL
[2022-06-06 13:12] LABS: Influenza A PCR NEGATIVE (Negative); Influenza B PCR NEGATIVE (Negative); Resp Syncy Virus RNA Qual PCR NEGATIVE (Negative); SARS COV2 PCR INHOUSE NEGATIVE (Negative)
[2022-06-06 14:56] VITALS: BP 109/78; PULSE 60; RESP 18; TEMP 36.1; O2SAT 99
== END 2022-06-06 16:30 | disposition home or self-care (01) ==
PROVIDERS: Physician Assistant Medical; Emergency Provider Emergency Medicine Emergency Medical Services
DX: R10.11 Right upper quadrant pain (principal); Z20.822 Contact with and (suspected) exposure to COVID-19; Z20.828 Contact with and (suspected) exposure to other viral communicable diseases
CPT/HCPCS: 0241U; 74176; 80053; 83735; 84702; 85025; 85610; 99283